=== PATIENT | male | born 1960 | race African-American/Black ===

== ENCOUNTER 2016-12-11 04:06 | Inpatient (IN) | payer OTHER ==
[2016-12-11] MEDS ORDERED: METHYLPREDNISOLONE INJ 125 MG/2 ML SDV IV ONE (04:10)
[2016-12-11] MEDS ORDERED: IPRATROPIUM/ALBUTEROL 0.5-2.5 MG/3 ML AMPUL NEB ONE ×2 (04:10→04:14)
[2016-12-11] MEDS ORDERED: METHYLPREDNISOLONE INJ 125 MG/2 ML SDV ONE (04:14)
[2016-12-11] MEDS ORDERED: LORAZEPAM INJ 2 MG/1 ML VIAL IV ONE ×2 (04:18→06:05)
[2016-12-11] MEDS ORDERED: ALBUTEROL SULFATE 0.083% NEB 2.5 MG/3 ML AMPUL NEB SCH (04:25)
[2016-12-11 04:33] LABS: ABSOLUTE BASOPHILS # (AUTO) 0.1 10^3/uL (0.0-0.2); ABSOLUTE LYMPHOCYTES (AUTO) 1.4 10^3/uL (0.5-4.7); ABSOLUTE MONOCYTES (AUTO) 1.2 10^3/uL (0.1-1.4); ABSOLUTE NEUT (AUTO) 12.4 10^3/uL (1.7-8.2); BASOPHILS % (AUTO) 0.4 % (0-2); HEMATOCRIT 51.2 % (37.9-51.0); HEMOGLOBIN 16.9 g/dL (13.5-17.0); HGB HCT DIFFERENCE -0.5; LYMPHOCYTES % (AUTO) 9.1 % (13-45); MEAN CORPUSCULAR HEMOGLOBIN 31.4 pg (27.0-33.4); MEAN CORPUSCULAR VOLUME 95 fl (80-97); MONOCYTES % (AUTO) 7.8 % (3-13); RED BLOOD COUNT 5.38 10^6/uL (4.35-5.55); RED CELL DISTRIBUTION WIDTH 15.7 % (11.5-14.0); SEGMENTED NEUTROPHILS % (AUTO) 82.7 % (42-78)
--- NOTE | 2016-12-11 04:34 | ER Document Report ---
ED General <SHILO JIMENEZ - Last Filed: 12/11/16 07:43> - General TRAVEL OUTSIDE OF THE [place] IN LAST 30 DAYS: No <ALEKSANDR RENEE - Last Filed: 12/11/16 07:46> - General Chief Complaint: Shortness Of Breath Stated Complaint: SHORTNESS OF BREATH Time Seen by Provider: 12/11/16 04:17 Notes: Patient is a 56-year-old male who presents with complaint of shortness of breath. He is able couple shortness of breath. He did not feel short of breath before going to bed. He's never had anything like this before. He says he is a former smoker but smoked a long time ago. He is an alcoholic. Still last drink was yesterday. I did look through his records and see where he's been in for a cholesterol. Patient is tachycardic and tremulous. I asked him if he feels he may been withdrawal again, patient says it's possible. Patient denies history of asthma. No history of COPD. No recent leg pain or leg swelling. No history of DVT or PE in the past. No chest pain. No recent fevers or infections. No other complaints at this time. (ALEKSANDR RENEE) - Related Data Allergies/Adverse Reactions: No Known Allergies Allergy (Verified 12/11/16 05:01) Past Medical History - Social History Smoking Status: Former Smoker Frequency of alcohol use: Heavy Drug Abuse: None Family History: Reviewed & Not Pertinent, Hypertension, Other - Mom age 74 Alzheimer's Patient has suicidal ideation: No Patient has homicidal ideation: No - Past Medical History Cardiac Medical History: Reports: Hx Hypertension Denies: Hx Congestive Heart Failure - Cardiomyopathy, Hx Coronary Artery Disease, Hx Heart Attack Pulmonary Medical History: Denies: Hx Asthma, Hx Bronchitis, Hx COPD, Hx Pneumonia Neurological Medical History: Denies: Hx Cerebrovascular Accident, Hx Seizures Renal/ Medical History: Denies: Hx Peritoneal Dialysis Musculoskeltal Medical History: Reports Hx Arthritis Psychiatric Medical History: Reports: Hx Post Traumatic Stress Disorder Denies: Hx Depression Past Surgical History: Reports: Hx Orthopedic Surgery - neck - Immunizations Hx Diphtheria, Pertussis, Tetanus Vaccination: No <ALEKSANDR RENEE - Last Filed: 12/11/16 07:46> Review of Systems <SHILO JIMENEZ - Last Filed: 12/11/16 07:43> <ALEKSANDR RENEE - Last Filed: 12/11/16 07:46> - Review of Systems Notes: My Normal Review Basic REVIEW OF SYSTEMS: CONSTITUTIONAL : Denies fever, chills, or sweats. Denies recent illness. EENT: Denies eye, ear, throat, or mouth pain or symptoms. Denies nasal or sinus congestion. CARDIOVASCULAR: Denies chest pain. RESPIRATORY: Difficulty breathing. GASTROINTESTINAL: Denies abdominal pain. Denies nausea, vomiting, or diarrhea. Denies constipation. Last BM: MP: MUSCULOSKELETAL: Denies neck or back pain or joint pain or swelling. SKIN: Denies rash or skin lesions. NEUROLOGICAL: Denies altered mental status or loss of consciousness. Denies headache. Denies weakness or paralysis or loss of use of either side. Denies problems with gait or speech. Denies sensory or motor loss. ALL OTHER SYSTEMS REVIEWED AND NEGATIVE. (ALEKSANDR RENEE) Physical Exam <SHILO JIMENEZ - Last Filed: 12/11/16 07:43> <ALEKSANDR RENEE - Last Filed: 12/11/16 07:46> - Vital signs Vitals: Pulse Resp BP Pulse Ox 130 H 32 H 123/91 H 87 L 12/11/16 04:07 12/11/16 04:07 12/11/16 04:07 12/11/16 04:07 - Notes Notes: General Appearance: Well nourished, alert, cooperative, moderate acute distress , no obvious discomfort. Anxious appearing. Vitals: reviewed, See vital signs table. Head: no swelling or tenderness to the head Eyes: PERRL, EOMI, Conjuctiva clear Mouth: No decreasd moisture Throat: No tonsillar inflammation, No airway obstruction, No lymphadenopathy Neck: Supple, no neck tenderness, No thyromegaly Lungs: No wheezing, No rales, No rhonci, mild to moderate accessory muscle use, fair air exchange bilaterally. Some tachypnea Heart: Tachycardia rate, Regular rythm, No murmur, no rub Abdomen: Normal BS, soft, No rigidity, No abdominal tenderness, No guarding, no rebound, no abdominal masses, no organomegaly Extremities: strength 5/5 in all extremities, good pulses in all extremities, no swelling or tenderness in the extremities, no edema. Skin: warm, dry, appropriate color, no rash Neuro: speech clear, oriented x 3, normal affect, responds appropriately to questions. Some tremor on exam. Cranial nerves II through XII are intact. No focal neurologic deficits. (ALEKSANDR RENEE) Course - Laboratory Result Diagrams: 12/11/16 04:18 12/11/16 05:08 <SHILO JIMENEZ - Last Filed: 12/11/16 07:43> - Laboratory Result Diagrams: 12/11/16 04:18 12/11/16 05:08 <ALEKSANDR RENEE - Last Filed: 12/11/16 07:46> - Re-evaluation Re-evalutation: 12/11/16 04:33 I do not hear much wheezing on exam. Patient appears have some good air exchange. He is a poor smoker. We will give him a trial available as treatment. I will also start him off of Ativan as he is alcoholic and does have a history of withdrawal and it has been over 12 hours since his last drink. We will obtain slept to evaluate patient. Will obtain chest x-ray. If everything continues be negative and the patient continues have difficulty breathing we may consider workup for PE. 12/11/16 04:54 Patient is looking and feeling much more relaxed. He says he does not feel like his wheezing anymore. I initially did not really hear any wheezing the patient himself said he had been hearing wheezing tonight before coming in. I' m not sure if it's the breathing treatment that is helping him or the Ativan. I do feel like he is having better air exchange now however. I do seem to hear more air movement that I did before the breathing treatment. We will continue to monitor him to make sure he continues to improve. 12/11/16 04:55 12/11/16 06:06 The patient's T7 days feeling better; however, today he seems to be certain have increased work of breathing as compared to when I last evaluated him. I will give him another epidural treatment consisting help some in the past. I will give him another dose of Ativan. His labs show is very acidotic. His hypokalemic. I suspect there is accommodation of both arrestor issue as well as alcohol withdrawal. I will obtain a VQ scan to rule out PE. 12/11/16 06:47 Patient suddenly started to do much worse. He's now only speaking in 1-2 word sentences. I therefore elected to intubate him as he was started to look very tired and was having a lot of difficulty breathing. Patient did agree to intubation. Patient was intubated on first attempt. His lung sounds continue to remain clear. I've ordered a VQ scan to rule out PE. 12/11/16 07:20 Received phone call that the NG tube may be in the left main bronchus. I had the nurses pulled NG tube. I stayed at bedside and helped reposition the NG tube. Now with NG tube repositioned we have stomach contents coming back with suctioning. Tube appears to be in appropriate position at this time. (ALEKSANDR RENEE) - Vital Signs Vital signs: Temp Pulse Resp BP Pulse Ox 97.8 F 130 H 29 H 126/94 H 96 12/11/16 04:20 12/11/16 04:07 12/11/16 07:15 12/11/16 07:15 12/11/16 07:15 - Laboratory Laboratory results interpreted by me: 12/11/16 12/11/16 12/11/16 04:18 04:18 04:18 WBC 15.0 H Hct 51.2 H RDW 15.7 H Seg Neutrophils % 82.7 H Lymphocytes % 9.1 L Absolute Neutrophils 12.4 H VBG pH 7.10 L* VBG pCO2 33.8 L VBG HCO3 10.2 L Potassium Chloride Carbon Dioxide Anion Gap Creatinine Est GFR ( Amer) Est GFR (Non-Af Amer) Glucose Magnesium Total Bilirubin Direct Bilirubin AST Creatine Kinase CK-MB (CK-2) 17.50 H Total Protein Albumin 12/11/16 12/11/16 05:08 05:08 WBC Hct RDW Seg Neutrophils % Lymphocytes % Absolute Neutrophils VBG pH VBG pCO2 VBG HCO3 Potassium 3.0 L* Chloride 93 L Carbon Dioxide 8 L* Anion Gap 39 H Creatinine 1.82 H Est GFR ( Amer) 47 L Est GFR (Non-Af Amer) 39 L Glucose 139 H Magnesium 1.4 L Total Bilirubin 2.2 H Direct Bilirubin 1.1 H AST 85 H Creatine Kinase 804 H CK-MB (CK-2) Total Protein 8.9 H Albumin 5.1 H - EKG Interpretation by Me Additional EKG results interpreted by me: 12/11/16 04:30 EKG is reviewed and interpreted by me. EKG shows sinus tachycardia with a rate of 133 beats per minute. No ST segment elevation or depression. No ischemic T wave inversions. AL level, QRS duration, QTC levels are within normal range. ( ALEKSANDR RENEE) Procedures - Intubation Orotracheal Airway evaluation: Normal anatomy Mallampati Classification: Class 1 Medications: Etomidate, Succinylcholine Intubation method: Orotracheal Blade type: Kathe Blade size: 4 ETT size: 7.5 ETT secured at: Gums ETT secured at (cm): 25 Breath Sounds after Intubation: Equal End tidal CO2 confirmed: Yes Intubation Complications: No complications <ALEKSANDR RENEE - Last Filed: 12/11/16 07:46> Critical Care Note <SHILO JIMENEZ - Last Filed: 12/11/16 07:43> - Critical Care Note Total time excluding time spent on procedures (mins): 65 <ALEKSANDR RENEE - Last Filed: 12/11/16 07:46> - Critical Care Note Comments: Critical care time spent on this patient not including time spent on procedures is approximately 65 minutes. This is due to management of respiratory distress, hypokalemia, frequent reevaluations, and vent management.. (ALEKSANDR RENEE) Discharge - Discharge Admitting Provider: Hospitalist Unit Admitted: ICU <SHILO JIMENEZ - Last Filed: 12/11/16 07:43> <ALEKSANDR RENEE - Last Filed: 12/11/16 07:46> - Discharge Clinical Impression: Tachycardia Alcohol dependency Qualifiers: Substance use status: unspecified alcohol-induced disorder Qualified Code(s): F10.29 - Alcohol dependence with unspecified alcohol-induced disorder Respiratory failure Qualifiers: Chronicity: acute Respiratory failure complication: hypoxia Qualified Code(s): J96.01 - Acute respiratory failure with hypoxia Referrals: DEVEN ALCALA DO [Primary Care Provider] - Follow up as needed
[2016-12-11 04:35] LABS: VENOUS BLOOD BASE EXCESS -18.4 mmol/L; VENOUS BLOOD HCO3 10.2 mmol/L (20-32); VENOUS BLOOD PCO2 33.8 mmHg (35-63)
[2016-12-11 04:36] LABS: VENOUS BLOOD PH 7.1 (7.30-7.42)
[2016-12-11 05:01] LABS: CREATINE KINASE MB 17.5 ng/mL (<4.55)
[2016-12-11 05:05] LABS: TROPONIN I 0.036 ng/mL
[2016-12-11] MEDS: MAGNESIUM SULFATE/D5W 100 ML IV SCH ×2 (05:14→06:14)
[2016-12-11 05:30] LABS: ALANINE AMINOTRANSFERASE 68 U/L (21-72); ALBUMIN 5.1 g/dL (3.5-5.0); ALKALINE PHOSPHATASE 84 U/L (38-126); ASPARTATE AMINO TRANSFERASE 85 U/L (17-59); BILIRUBIN,DIRECT 1.1 mg/dL (0.0-0.4); BILIRUBIN,TOTAL 2.2 mg/dL (0.2-1.3); BLOOD UREA NITROGEN 20 mg/dL (7-20); CALCIUM 9.5 mg/dL (8.4-10.2); CHLORIDE 93 mmol/L (98-107); CREATINE KINASE 804 U/L (55-170); CREATININE RESULT 1.82 mg/dL (0.52-1.25); GLUCOSE 139 mg/dL (75-110); TOTAL PROTEIN 8.9 g/dL (6.3-8.2)
[2016-12-11 05:32] LABS: ALCOHOL < 10 mg/dL (NONE DETECTED)
[2016-12-11 05:57] LABS: SODIUM 140.3 mmol/L (137-145)
[2016-12-11 05:59] LABS: ANION GAP 39 (5-19)
[2016-12-11 06:01] LABS: CARBON DIOXIDE 8 mmol/L (22-30)
[2016-12-11] MEDS ORDERED: NORMAL SALINE 1000 ML 1,000 ML IV ONE (06:02)
[2016-12-11] MEDS ORDERED: POTASSIUM CHLORIDE 10 MEQ TABLET.SA PO ONE (06:02)
[2016-12-11] MEDS ORDERED: ALBUTEROL SULFATE 0.083% NEB 2.5 MG/3 ML AMPUL NEB ONE (06:05)
[2016-12-11] MEDS ORDERED: ETOMIDATE INJ/PF 20 MG/10 ML SDV IV ONE ×2 (06:34→06:46)
[2016-12-11] MEDS ORDERED: MIDAZOLAM 2 MG/2 ML INJ ONE (06:45)
[2016-12-11] MEDS ORDERED: SUCCINYLCHOLINE CHLORIDE INJ 200 MG/10 ML VIAL IV ONE (06:46)
[2016-12-11] MEDS ORDERED: MIDAZOLAM HCL 100 ML IV PRN ×2 (06:46→07:45)
[2016-12-11] MEDS ORDERED: MIDAZOLAM 2 MG/2 ML INJ IV ONE (06:46)
[2016-12-11] MEDS ORDERED: SUCCINYLCHOLINE CHLORIDE INJ 200 MG/10 ML VIAL ONE (06:50)
[2016-12-11] MEDS ORDERED: MIDAZOLAM HCL 100 ML IV ONE (06:51)
[2016-12-11] MEDS ORDERED: PROPOFOL INJ 200 MG/20 ML VIAL IV ONE (06:58)
[2016-12-11] MEDS ORDERED: PROPOFOL 100 ML IV PRN (06:58)
[2016-12-11] MEDS ORDERED: PROPOFOL 100 ML IV ONE (07:00)
[2016-12-11] MEDS ORDERED: POTASSI CL 20 MEQ/50 ML RIDER 50 ML IV SCH (07:30)
[2016-12-11] MEDS ORDERED: SODIUM BICARBONATE 8.4% INJ 50 MEQ/50 ML DISP.SYRIN IV ONE ×3 (07:42→11:30)
[2016-12-11] MEDS ORDERED: PHARMACY COMMUNICATION ORDER MC NR (07:45)
[2016-12-11] MEDS ORDERED: ACETAMINOPHEN 325 MG TABLET NG PRN (07:47)
[2016-12-11] MEDS ORDERED: ONDANSETRON HCL INJ/PF 4 MG/2 ML SDV IV PRN (07:47)
[2016-12-11] MEDS ORDERED: LEVALBUTEROL HCL NEB 1.25 MG/3 ML AMPUL NEB PRN (07:47)
[2016-12-11] MEDS ORDERED: DEXTROSE 40% GEL 15 GM TUBE PO PRN ×2 (07:52)
[2016-12-11] MEDS ORDERED: DEXTROSE 50%-WATER 25 GM/50 ML DISP.SYRIN IV PRN ×2 (07:52)
[2016-12-11] MEDS ORDERED: GLUCAGON,HUMAN RECOMB 1 MG INJ IM PRN (07:52)
[2016-12-11] MEDS ORDERED: INSULIN LISPRO 100 UNIT/ML 3 ML VIAL SUBCUT PRN (07:52)
[2016-12-11] MEDS ORDERED: LORAZEPAM INJ 2 MG/1 ML VIAL IV PRN (07:54)
[2016-12-11] MEDS ORDERED: FENTANYL CITRATE INJ/PF 100 MCG/2 ML AMPUL IV PRN (07:54)
[2016-12-11] MEDS ORDERED: IPRATROPIUM/ALBUTEROL 0.5-2.5 MG/3 ML AMPUL NEB SCH (08:00)
[2016-12-11] MEDS ORDERED: POTASSIUM CHLORIDE 20 MEQ/15 ML UDCUP NG ONE (08:30)
[2016-12-11] MEDS: NORMAL SALINE 1000 ML 1,000 ML IV PRN ×2 (08:31→08:53)
[2016-12-11] MEDS ORDERED: HEPARIN SOD (PORCINE) 1,000 UNIT/ML 10 ML VIAL IV PRN (08:38)
[2016-12-11] MEDS ORDERED: HEPARIN SOD (PORCINE) 1,000 UNIT/ML 10 ML VIAL IV ONE (08:38)
[2016-12-11] MEDS ORDERED: HEPARIN SODIUM,PORCINE/D5W 250 ML IV PRN (08:38)
[2016-12-11] MEDS ORDERED: NORMAL SALINE 1000 ML 3,000 ML IV ONE (08:48)
[2016-12-11] MEDS: PROPOFOL 100 ML IV PRN ×2 (09:02→11:55)
[2016-12-11 09:17] LABS: THYROID STIMULATING HORMONE 2.05 uIU/mL (0.47-4.68)
[2016-12-11 09:40] LABS: CREATINE KINASE 766 U/L (55-170)
[2016-12-11 09:42] LABS: APPEARANCE,URINE CLEAR; BILIRUBIN,URINE NEGATIVE (NEGATIVE); GLUCOSE, URINE NEGATIVE (NEGATIVE); KETONES,URINE 80 mg/dL (NEGATIVE); LEUKOCYTE ESTERASE,URINE NEGATIVE (NEGATIVE); NITRITE,URINE NEGATIVE (NEGATIVE); PROTEIN,URINE 30 mg/dL (NEGATIVE); URINE SPECIFIC GRAVITY 1.011; UROBILINOGEN,URINE NEGATIVE mg/dL (<2.0)
[2016-12-11 09:52] LABS: CREATINE KINASE MB 12.7 ng/mL (<4.55); TROPONIN I 0.032 ng/mL
[2016-12-11] MEDS: POTASSI CL 20 MEQ/50 ML RIDER 20 MEQ/50 ML RTUPB IV SCH ×2 (09:53→11:37)
[2016-12-11 09:56] LABS: ARTERIAL BLOOD BASE EXCESS -15.1 mmol/L; ARTERIAL BLOOD O2 SATURATION 99.5 % (94-98)
[2016-12-11 09:58] LABS: D-DIMER 5.33 ug/mL (0.00-0.50); PARTIAL THROMBOPLASTIN TIME 25.9 SEC (23.5-35.8); PROTHROMBIN TIME 13.2 SEC (11.4-15.4)
[2016-12-11 09:59] LABS: LIPASE 9881.1 U/L (23-300)
[2016-12-11] MEDS: MAGNESIUM SULFATE/D5W 1 GM/100 ML RTUPB IV SCH ×2 (09:59→11:41)
[2016-12-11] MEDS ORDERED: THIAMINE HCL 100 MG, FOLIC ACID 1 MG in NORMAL SALINE 50 ML IV SCH (10:00)
[2016-12-11] MEDS ORDERED: PANTOPRAZOLE SODIUM 40 MG VIAL IV SCH (10:00)
[2016-12-11 10:04] LABS: URINE BARBITURATES SCREEN NEGATIVE; URINE METHADONE SCREEN NEGATIVE; URINE OPIATES LOW NEGATIVE
[2016-12-11 10:12] LABS: URINE PHENCYCLIDINE SCREEN NEGATIVE
[2016-12-11] MEDS ORDERED: DEXTROSE 5%-WATER 1000 ML 1,000 ML with SODIUM BICARBONATE 150 ML IV PRN ×2 (10:43)
[2016-12-11] MEDS ORDERED: NORMAL SALINE 1000 ML 1,000 ML IV PRN (10:44)
[2016-12-11] MEDS ORDERED: DEXTROSE 5%-WATER 1000 ML 1,000 ML with SODIUM BICARBONATE 150 MEQ IV PRN ×2 (11:02)
[2016-12-11] MEDS ORDERED: ASPIRIN 300 MG SUPP, RECTAL PR ONE (11:04)
[2016-12-11] MEDS ORDERED: ASPIRIN 325 MG TABLET ONE (11:07)
[2016-12-11] MEDS ORDERED: ENALAPRILAT DIHYDRATE INJ/PF 1.25 MG/1 ML SDV IV ONE (11:11)
--- NOTE | 2016-12-11 11:27 | PDOC H&P ---
History of Present Illness Admission Date/PCP: 12/11/16 07:47 DEVEN ALCALA DO History of Present Illness: BILLIE RM is a 56 year old male who is currently intubated in the emergency department. History is unobtainable secondary to this and all history is obtained via the ER documentation, review of records, and discussion with the ER physician, . Patient barely presented with complaints of shortness of breath was found be saturating 87% on room air. Patient received SoluMedrol, DuoNeb, and Ativan and subsequently began having acute respiratory distress and was intubated. Any remaining history is obtained from the record. Patient is currently intubated and sedated. 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 Musculoskeltal Medical History: Reports: Arthritis Psychiatric Medical History: Reports: Alcohol Dependency, Post Traumatic Stress Disorder Denies: Depression Hematology: Denies: Anemia Past Surgical History Past Surgical History: Reports: Orthopedic Surgery - neck Social History Smoking Status: Former Smoker Frequency of Alcohol Use: Heavy Amount of Alcoholic Beverages Per Day: last reported is a fifth of gin a day Hx Recreational Drug Use: No Drugs: None Hx Prescription Drug Abuse: No - Advance Directive Resuscitation Status: Full Code Surrogate healthcare decision maker:: Unable to obtain Family History Family History: Reviewed & Not Pertinent, Hypertension, Other - Mom age 74 Alzheimer's Parental Family History Reviewed: No - unable to obtain Children Family History Reviewed: No Sibling(s) Family History Reviewed.: No Medication/Allergy Home Medications: Unobtainable [Unobtainable] 12/11/16 Allergies/Adverse Reactions: No Known Allergies Allergy (Verified 12/11/16 05:01) Review of Systems ROS unobtainable: Due to endotracheal tube Physical Exam Vital Signs: Temp Pulse Resp BP Pulse Ox 97.8 F 130 H 18 150/106 H 100 12/11/16 04:20 12/11/16 04:07 12/11/16 09:37 12/11/16 09:37 12/11/16 09:37 General appearance: PRESENT: well-developed, well-nourished, other - Intubated and sedated Head exam: PRESENT: atraumatic, normocephalic Eye exam: PRESENT: conjunctiva pink, scleral icterus. ABSENT: conjunctival injection, periorbital swelling, PERRLA - Pupils are minimally reactive miotic. Ear exam: PRESENT: normal external ear exam Mouth exam: PRESENT: dry mucosa, tongue midline Neck exam: ABSENT: carotid bruit, JVD, lymphadenopathy, thyromegaly, tracheal deviation Respiratory exam: PRESENT: clear to auscultation sidney. ABSENT: rales, rhonchi, wheezes Cardiovascular exam: PRESENT: RRR, +S1, +S2, systolic murmur, tachycardia. ABSENT: clicks, diastolic murmur, gallop, rubs Pulses: PRESENT: normal dorsalis pedis pul Vascular exam: PRESENT: normal capillary refill GI/Abdominal exam: PRESENT: distended, normal bowel sounds, soft. ABSENT: firm , guarding, mass, Woodall's sign, organolmegaly, rebound, rigid, tenderness Rectal exam: PRESENT: deferred Extremities exam: PRESENT: full ROM. ABSENT: calf tenderness, clubbing, pedal edema Neurological exam: PRESENT: other - Intubated and sedated Psychiatric exam: PRESENT: other - Intermittent and sedated Skin exam: PRESENT: dry, intact, rash - Patient has maculo papular rash on dorsum of his right foot, warm. ABSENT: cyanosis Results Laboratory Results: 12/11/16 12/11/16 12/11/16 08:45 08:45 08:54 Carbonic Acid HCO3/H2CO3 Ratio ABG pH ABG pCO2 ABG pO2 ABG HCO3 ABG O2 Saturation ABG Base Excess FiO2 Ammonia 52.1 H Lipase 9881.1 H Urine Color YELLOW Urine Appearance CLEAR Urine pH 5.0 Ur Specific [place] 1.011 Urine Protein 30 H Urine Glucose (UA) NEGATIVE Urine Ketones 80 H Urine Blood LARGE H Urine Nitrite NEGATIVE Ur Leukocyte Esterase NEGATIVE Urine WBC (Auto) 0 Urine RBC (Auto) 1 12/11/16 09:45 Carbonic Acid 0.79 L HCO3/H2CO3 Ratio 13:1 ABG pH 7.22 L ABG pCO2 26.4 L ABG pO2 270.5 H ABG HCO3 10.7 L ABG O2 Saturation 99.5 H ABG Base Excess -15.1 FiO2 100% Ammonia Lipase Urine Color Urine Appearance Urine pH Ur Specific [place] Urine Protein Urine Glucose (UA) Urine Ketones Urine Blood Urine Nitrite Ur Leukocyte Esterase Urine WBC (Auto) Urine RBC (Auto) 12/11/16 12/11/16 08:45 08:45 Creatine Kinase 766 H CK-MB (CK-2) 12.70 H Troponin I 0.032 Impressions: KUB X-Ray 12/11/16 07:44 IMPRESSION: Nasogastric tube extends below the diaphragm. Bowel distention noted. Chest X-Ray 12/11/16 09:47 IMPRESSION: Endotracheal tube tip midtrachea. Nasogastric tube tip in the distal esophagus. Minimal retrocardiac atelectasis Status: Imported from PACS Assessment & Plan - Diagnosis (1) STEMI (ST elevation myocardial infarction) Qualifiers: Involved coronary artery: right coronary artery Qualified Code(s): I21.11 - ST elevation (STEMI) myocardial infarction involving right coronary artery Is this a current diagnosis for this admission?: YesPlan: Patient has been given aspirin, Lipitor, and metoprolol. Discussion with cardiology, Dr. CHAVEZ reveals patient has a high risk for bleeding secondary to his alcoholism and no unable to obtain history. At this time does not recommend lytic therapy. Patient also transfer to tertiary center for STEMI. (2) Respiratory failure Qualifiers: Chronicity: acute Respiratory failure complication: hypoxia Qualified Code(s): J96.01 - Acute respiratory failure with hypoxia Is this a current diagnosis for this admission?: YesPlan: Likely secondary to underlying STEMI. Patient now intubated. (3) Hypomagnesemia Is this a current diagnosis for this admission?: YesPlan: Have given 3 g IV. (4) Alcohol dependency Qualifiers: Substance use status: unspecified alcohol-induced disorder Qualified Code(s): F10.29 - Alcohol dependence with unspecified alcohol-induced disorder Is this a current diagnosis for this admission?: YesPlan: Give IV thiamine folic acid replete magnesium and potassium. Patient on Versed drip and propofol (5) Hypertension Qualifiers: Hypertension type: essential hypertension Qualified Code(s): I10 - Essential (primary) hypertension Is this a current diagnosis for this admission?: YesPlan: Place patient on IV metoprolol. Patient currently preload dependent will avoid nitroglycerin. (6) High anion gap metabolic acidosis Is this a current diagnosis for this admission?: YesPlan: Have given patient 2 boluses of sodium bicarbonate will begin a bicarbonate drip at 100 mL per hour. This is likely secondary to underlying alcohol like starvation ketosis, and lactic acidosis. Patient had prior been compensated and a respiratory fashion and underwent subsequent respiratory failure. (7) Elevated lipase Is this a current diagnosis for this admission?: YesPlan: Concern for underlying pancreatitis. Will hold CT abdomen and pelvis pending transfer. Concern for gallstones as patient does have a mildly elevated bilirubin. (8) Hyperammonemia Is this a current diagnosis for this admission?: YesPlan: Likely secondary to underlying liver disease. - Time Critical Time spent with patient: 35 or more minutes - Active critical care time spent with this patient was 90 minutes Medications reviewed and adjusted accordingly: Yes Anticipated discharge: [facility]: when bed available - Inpatient Certification Based on my medical assessment, after consideration of the patient's comorbidities, presenting symptoms, or acuity I expect that the services needed warrant INPATIENT care.: Yes I certify that my determination is in accordance with my understanding of Medicare's requirements for reasonable and necessary INPATIENT services [42 CFR 412.3e].: Yes Medical Necessity: Need For Continuous Telemetry Monitoring Post Hospital Care: D/C or Transfer Summary
--- NOTE | 2016-12-11 11:33 | PDOC TRANSFER SUMMARY ---
General Admission Date/PCP: 12/11/16 07:47 DEVEN ALCALA, Transfer Date: 12/11/16 Accepting Facility: [facility] Resuscitation Status: Full Code - Transfer Diagnosis (1) STEMI (ST elevation myocardial infarction) Is this a current diagnosis for this admission?: Yes (2) Respiratory failure Is this a current diagnosis for this admission?: Yes (3) Hypomagnesemia Is this a current diagnosis for this admission?: Yes (4) Alcohol dependency Is this a current diagnosis for this admission?: Yes (5) Hypertension Is this a current diagnosis for this admission?: Yes (6) High anion gap metabolic acidosis Is this a current diagnosis for this admission?: Yes (7) Elevated lipase Is this a current diagnosis for this admission?: Yes (8) Hyperammonemia Is this a current diagnosis for this admission?: Yes - Transfer Medications Home Medications: Unobtainable [Unobtainable] 12/11/16 Transfer Medications: Current Medications Acetaminophen (Tylenol 325 Mg Tablet) 325 mg NG Q4HP PRN PRN Reason: FOR PAIN OR TEMP Stop: 01/10/17 07:46 Acetylcysteine (Mucomist 20% Soln 800 Mg/4 Ml) 600 mg NEB RTBID GONZALEZ Stop: 01/10/17 19:59 Albuterol/Ipratropium (Duoneb 3 Ml Ampul) 3 ml NEB RTQ6 GONZALEZ Stop: 01/10/17 07:59 Last Admin: 12/11/16 09:50 Dose: 3 ml Atorvastatin Calcium (Lipitor 80 Mg Tablet) 80 mg NG QHS GONZALEZ Stop: 01/10/17 21:59 Dextrose (Dextrose Inj 50% Syringe (25 Gm/50 Ml)) 12.5 gm IV PRN PRN; Protocol PRN Reason: FOR BG 50-69 IN ALERT PATIENT Stop: 01/10/17 07:51 Dextrose (Dextrose Inj 50% Syringe (25 Gm/50 Ml)) 25 gm IV PRN PRN PRN Reason: Protocol Stop: 01/10/17 07:51 Fentanyl Citrate (Sublimaze Inj/Pf 100 Mcg/2 Ml Ampule) 50 mcg IV Q4HP PRN PRN Reason: PAIN Stop: 12/18/16 07:53 Glucagon (Glucagen Inj 1 Mg Vial) 1 mg IM PRN PRN; Protocol PRN Reason: Evaluate for BG < 70 Stop: 01/10/17 07:51 Glucose (Glutose 40% Gel 15 Gm Tube) 30 gm PO PRN PRN; Protocol PRN Reason: FOR BG < 50 IN ALERT PATIENT Stop: 01/10/17 07:51 Glucose (Glutose 40% Gel 15 Gm Tube) 15 gm PO PRN PRN; Protocol PRN Reason: FOR BG 50-69 IN ALERT PATIENT Stop: 01/10/17 07:51 Heparin Sodium (Porcine) (Heparin Inj 5,000 Units/Ml 1 Ml Syringe) 5,000 unit SUBCUT Q8 GONZALEZ Stop: 01/10/17 13:59 Heparin Sodium (Porcine) (Heparin Inj 1,000 Unit/Ml 10 Ml Vial) 0 - 15,000 unit IV .BOLUS PER PROTOCOL PRN; Protocol PRN Reason: RESPOND TO aPTT VALUE Stop: 01/10/17 08:37 Magnesium Sulfate/Dextrose (Magnesium Sulfate Rtu-D5w 1 Gm/100 Ml Premix) 1 gm in 100 mls @ 100 mls/hr IV Q1H [facility] Stop: 12/11/16 12:59 Last Admin: 12/11/16 09:59 Dose: 100 ml Potassium Chloride/Water (Potassium Chloride [place] 20 Meq/50 Ml) 20 meq in 50 mls @ 25 mls/hr IV Q2H [facility] Stop: 12/11/16 14:29 Last Admin: 12/11/16 09:53 Dose: 50 ml Midazolam HCl (Versed Rtu 50 Mg/100 Ml Premix Bag) 100 mls @ 0 mls/hr IV CONTINUOUS PRN; Protocol; Titrate PRN Reason: THIS MED IS NOT "PRN" Stop: 12/18/16 07:44 Propofol (Diprivan Rtu 1000 Mg/100 Ml Inf.Bottle) 100 mls @ 0 mls/hr IV CONTINUOUS PRN; Protocol; Titrate PRN Reason: THIS MED IS NOT "PRN" Stop: 01/10/17 07:44 Last Admin: 12/11/16 09:02 Dose: 100 ml Thiamine HCl 100 mg/ Folic (Acid 1 mg/ Sodium Chloride) 51.2 mls @ 100 mls/hr IV DAILY [facility] Stop: 01/10/17 09:59 Last Admin: 12/11/16 09:59 Dose: 100 mg Heparin Sodium/Dextrose (Heparin Rtu 25,000 Unit/250 Ml D5w Premix) 250 mls @ 0 mls/hr IV CONTINUOUS PRN; Protocol; Titrate PRN Reason: THIS MED IS NOT "PRN" Stop: 01/10/17 08:37 Last Admin: 12/11/16 11:17 Dose: 250 ml Sodium Chloride (Nacl 0.9% 1000 Ml Iv Soln) 3,000 mls @ 200 mls/hr IV BOLUS ONE Stop: 12/11/16 23:47 Sodium Chloride (Nacl 0.9% 1000 Ml Iv Soln) 1,000 mls @ 100 mls/hr IV CONTINUOUS PRN PRN Reason: THIS MED IS NOT "PRN" Stop: 01/10/17 07:46 Sodium Bicarbonate 150 meq/ (Dextrose) 1,000 mls @ 100 mls/hr IV CONTINUOUS PRN PRN Reason: THIS MED IS NOT "PRN" Stop: 01/10/17 11:01 Insulin Human Lispro (Humalog Insulin 100 Unit/1 Ml 3 Ml Vial) 0 - 12 unit SUBCUT Q6HP PRN PRN Reason: Protocol Stop: 01/10/17 07:51 Levalbuterol HCl (Xopenex Neb 1.25 Mg/3 Ml Ampul) 1.25 mg NEB RTQ2HP PRN PRN Reason: SHORTNESS OF BREATH Stop: 01/10/17 07:46 Lorazepam (Ativan Inj 2 Mg/1 Ml Vial) 2 mg IV Q2HP PRN PRN Reason: AGITATION Stop: 12/18/16 07:53 Methylprednisolone Sodium Succinate (Solu-Medrol Inj/Pf 125 Mg/2 Ml Sdv) 125 mg IV Q8 GONZALEZ Stop: 01/10/17 13:59 Metoprolol Tartrate (Lopressor Inj/Pf 5 Mg/5 Ml Sdv) 2.5 mg IV Q6 GONZALEZ Stop: 01/10/17 11:59 Ondansetron HCl (Zofran Inj/Pf 4 Mg/2 Ml Sdv) 4 mg IV Q6HP PRN PRN Reason: FOR NAUSEA/VOMITING Stop: 01/10/17 07:46 Pantoprazole Sodium (Protonix Iv Inj 40 Mg Vial) 40 mg IV Q12 GONZALEZ Stop: 12/14/16 09:59 Pharmacy Profile Note (Medication Communication Order) 1 each .NOTICE NR Stop: 01/10/17 07:44 Sodium Bicarbonate (Sodium Bicarbonate 8.4% Inj 50 Meq/50ml Syrin) 50 meq IV NOW ONE Stop: 12/11/16 11:31 Last Admin: 12/11/16 11:07 Dose: 50 meq Sodium Chloride (Saline Flush 2.5 Ml Monoject Prefil Syrin) 2.5 ml IV Q8 GONZALEZ Stop: 01/10/17 13:59 - Allergies Allergies/Adverse Reactions: No Known Allergies Allergy (Verified 12/11/16 05:01) Hospital Course Hospital Course: Patient is a 56-year-old [place] male who was seen this morning at the request of the emergency department. History is unobtainable secondary to this and all history is obtained via the ER documentation, review of records, and discussion with the ER physician, . Patient presented with complaints of shortness of breath was found be saturating 87% on room air. Patient received SoluMedrol, DuoNeb, and Ativan and subsequently began having acute respiratory distress and was intubated. Any remaining history is obtained from the record. Patient was then transferred to the ICU. Evaluation was continued here and repeat EKG revealed a inferior STEMI with reciprocal depressions. Patient was given aspirin, started on heparin, given Lipitor and immediate transfer was established for this patient. Cardiology, Dr. CHAVEZ, evaluated this patient has at this time recommends against lytic therapy due to patient's risk for bleeding due to his underlying alcoholism and inability to obtain a history. Patient was hospitalized in this facility in May 2016 for delirium tremens and possible seizure and during that evaluation patient was found to have a history of cardiomyopathy with an grossly normal EF in 2014 and mild diastolic dysfunction. Patient at that time had been restarted on his medications and discharged in stable condition. Currently it is unknown if take patient takes any medications, but per review of his previous stay patient is to be on Coreg. Physical Exam Vital Signs: Temp Pulse Resp BP Pulse Ox 97.8 F 130 H 18 150/106 H 100 12/11/16 04:20 12/11/16 04:07 12/11/16 09:37 12/11/16 09:37 12/11/16 09:37 Exam: General: Intubated and sedated HEENT: AT/NC, PERRL, EOMI, oropharynx is moist, pink, mild scleral icterus, no conjunctival injection Neck: + JVD, trachea midline Chest: Clear to auscultation bilaterally, no wheezes rhonchi or rales CV: Tachycardic, Regular rate and rhythm, normal S1 and S2, no rub or gallop; + sm llsb Abdomen: Soft, distended, active bowel sounds; no rigidity Extremities: No cyanosis, clubbing or edema Results Laboratory Results: 12/11/16 12/11/16 12/11/16 08:45 08:45 08:54 Carbonic Acid HCO3/H2CO3 Ratio ABG pH ABG pCO2 ABG pO2 ABG HCO3 ABG O2 Saturation ABG Base Excess FiO2 Ammonia 52.1 H Lipase 9881.1 H Urine Color YELLOW Urine Appearance CLEAR Urine pH 5.0 Ur Specific [place] 1.011 Urine Protein 30 H Urine Glucose (UA) NEGATIVE Urine Ketones 80 H Urine Blood LARGE H Urine Nitrite NEGATIVE Ur Leukocyte Esterase NEGATIVE Urine WBC (Auto) 0 Urine RBC (Auto) 1 12/11/16 09:45 Carbonic Acid 0.79 L HCO3/H2CO3 Ratio 13:1 ABG pH 7.22 L ABG pCO2 26.4 L ABG pO2 270.5 H ABG HCO3 10.7 L ABG O2 Saturation 99.5 H ABG Base Excess -15.1 FiO2 100% Ammonia Lipase Urine Color Urine Appearance Urine pH Ur Specific [place] Urine Protein Urine Glucose (UA) Urine Ketones Urine Blood Urine Nitrite Ur Leukocyte Esterase Urine WBC (Auto) Urine RBC (Auto) 12/11/16 12/11/16 08:45 08:45 Creatine Kinase 766 H CK-MB (CK-2) 12.70 H Troponin I 0.032 EKG Comments: EKG--inferior STEMI, reciprocal depression Impressions: KUB X-Ray 12/11/16 07:44 IMPRESSION: Nasogastric tube extends below the diaphragm. Bowel distention noted. Chest X-Ray 12/11/16 09:47 IMPRESSION: Endotracheal tube tip midtrachea. Nasogastric tube tip in the distal esophagus. Minimal retrocardiac atelectasis Plan Time Spent: Greater than 30 Minutes
[2016-12-11] MEDS ORDERED: METOPROLOL TARTRATE PF/INJ 5 MG/5 ML SDV IV SCH (12:00)
[2016-12-11 12:09] LABS: BLOOD UREA NITROGEN 24 mg/dL (7-20); CALCIUM 8.8 mg/dL (8.4-10.2); CHLORIDE 94 mmol/L (98-107); CREATININE RESULT 1.74 mg/dL (0.52-1.25); GLUCOSE 275 mg/dL (75-110); POTASSIUM 3.4 mmol/L (3.6-5.0)
[2016-12-11 12:11] VITALS: BP 148/93
[2016-12-11 12:24] LABS: CARBON DIOXIDE 12 mmol/L (22-30); SODIUM 137.9 mmol/L (137-145)
[2016-12-11 12:34] LABS: ANION GAP 32 (5-19)
[2016-12-11 12:40] LABS: ARTERIAL BLOOD BASE EXCESS -13.2 mmol/L; ARTERIAL BLOOD O2 SATURATION 95.2 % (94-98)
--- NOTE | 2016-12-11 12:53 | PDOC CONSULTATION ---
Consultation Consult Date: 12/11/16 Attending physician:: DINA LIU Consult reason:: resp failure History of Present Illness Admission Date/PCP: 12/11/16 07:47 DEVEN ALCALA DO History of Present Illness: all information from chart BILLIE RM is a 56 year old male who is currently intubated in the emergency department. History is unobtainable secondary to this and all history is obtained via the ER documentation, review of records, and discussion with the ER physician, . Patient barely presented with complaints of shortness of breath was found be saturating 87% on room air. Patient received SoluMedrol, DuoNeb, and Ativan and subsequently began having acute respiratory distress and was intubated. Any remaining history is obtained from the record. 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 Musculoskeltal Medical History: Reports: Arthritis Psychiatric Medical History: Reports: Alcohol Dependency, Post Traumatic Stress Disorder Denies: Depression Hematology: Denies: Anemia Past Surgical History Past Surgical History: Reports: Orthopedic Surgery - neck Social History Information Source: [facility] Records Smoking Status: Unknown if Ever Smoked Frequency of Alcohol Use: Heavy Hx Recreational Drug Use: No Drugs: None Hx Prescription Drug Abuse: No - Advance Directive Resuscitation Status: Full Code Family History Family History: Reviewed & Not Pertinent, Hypertension, Other - Mom age 74 Alzheimer's Parental Family History Reviewed: No Children Family History Reviewed: No Sibling(s) Family History Reviewed.: No Medication/Allergy Home Medications: Unobtainable [Unobtainable] 12/11/16 Allergies/Adverse Reactions: No Known Allergies Allergy (Verified 12/11/16 05:01) Review of Systems ROS unobtainable: Due to endotracheal tube Physical Exam Vital Signs: Temp Pulse Resp BP Pulse Ox 97.8 F 130 H 18 150/106 H 100 12/11/16 04:20 12/11/16 04:07 12/11/16 09:37 12/11/16 09:37 12/11/16 09:37 General appearance: PRESENT: no acute distress, disheveled, well-developed, well -nourished Head exam: PRESENT: atraumatic, normocephalic Eye exam: PRESENT: conjunctiva pale, EOMI Mouth exam: PRESENT: dry mucosa, neck supple, other - ET tube in place Neck exam: ABSENT: carotid bruit, JVD, lymphadenopathy, thyromegaly Respiratory exam: PRESENT: rhonchi, symmetrical, tachypnea Cardiovascular exam: PRESENT: RRR, +S1, +S2 Pulses: PRESENT: normal radial pulses GI/Abdominal exam: PRESENT: normal bowel sounds, soft. ABSENT: distended, guarding, mass, organolmegaly, rebound, tenderness Rectal exam: PRESENT: deferred Gentrourinary exam: PRESENT: indwelling catheter Musculoskeletal exam: PRESENT: other - eschar over L knee Skin exam: PRESENT: dry, warm Results Laboratory Results: 12/11/16 12/11/16 12/11/16 08:45 08:45 08:54 Carbonic Acid HCO3/H2CO3 Ratio ABG pH ABG pCO2 ABG pO2 ABG HCO3 ABG O2 Saturation ABG Base Excess FiO2 Ammonia 52.1 H Lipase 9881.1 H Urine Color YELLOW Urine Appearance CLEAR Urine pH 5.0 Ur Specific [place] 1.011 Urine Protein 30 H Urine Glucose (UA) NEGATIVE Urine Ketones 80 H Urine Blood LARGE H Urine Nitrite NEGATIVE Ur Leukocyte Esterase NEGATIVE Urine WBC (Auto) 0 Urine RBC (Auto) 1 12/11/16 09:45 Carbonic Acid 0.79 L HCO3/H2CO3 Ratio 13:1 ABG pH 7.22 L ABG pCO2 26.4 L ABG pO2 270.5 H ABG HCO3 10.7 L ABG O2 Saturation 99.5 H ABG Base Excess -15.1 FiO2 100% Ammonia Lipase Urine Color Urine Appearance Urine pH Ur Specific [place] Urine Protein Urine Glucose (UA) Urine Ketones Urine Blood Urine Nitrite Ur Leukocyte Esterase Urine WBC (Auto) Urine RBC (Auto) 12/11/16 12/11/16 08:45 08:45 Creatine Kinase 766 H CK-MB (CK-2) 12.70 H Troponin I 0.032 Impressions: KUB X-Ray 12/11/16 07:44 IMPRESSION: Nasogastric tube extends below the diaphragm. Bowel distention noted. Chest X-Ray 12/11/16 09:47 IMPRESSION: Endotracheal tube tip midtrachea. Nasogastric tube tip in the distal esophagus. Minimal retrocardiac atelectasis Assessment & Plan - Diagnosis (1) High anion gap metabolic acidosis Is this a current diagnosis for this admission?: YesPlan: large diff dx [place] (2) Respiratory failure Qualifiers: Chronicity: acute Respiratory failure complication: hypoxia Qualified Code(s): J96.01 - Acute respiratory failure with hypoxia Is this a current diagnosis for this admission?: Yes (3) STEMI (ST elevation myocardial infarction) Qualifiers: Involved coronary artery: unspecified coronary artery Qualified Code (s): I21.3 - ST elevation (STEMI) myocardial infarction of unspecified site Is this a current diagnosis for this admission?: YesPlan: transferred to [facility] care per pcp - Time Critical Time spent with patient: 25-34 minutes - 120 min
--- NOTE | 2016-12-11 12:55 | PDOC PROGRESS REPORT ---
Bedside Procedure - Central Line Right Internal jugular Time completed: 11:05 Consent obtained: No - immergent Central line pre-insertion: Sterile PPE donned, Betadine prep applied, Chloraprep applied, Sterile drapes applied Central line lumen type: Triple Anesthetic type: 1% Lidocaine Ultrasound guided: Yes Line secured with sutures: Yes Central line post-insertion: Blood return from lumens, Sutured, Sterile dressing applied, Position confirmed w/ CXR Complications: No
[2016-12-11] MEDS ORDERED: HEPARIN SOD (PORCINE) 5,000 UNIT/ML 1 ML SYRINGE SUBCUT SCH (14:00)
[2016-12-11] MEDS ORDERED: METHYLPREDNISOLONE INJ 125 MG/2 ML SDV IV SCH (14:00)
--- NOTE | 2016-12-11 16:59 | EKG REPORT ---
SEVERITY:- ABNORMAL ECG - SINUS TACHYCARDIA VENTRICULAR PREMATURE COMPLEX ST ELEVATION, PROBABLE INFERIOR INJURY BORDERLINE R WAVE PROGRESSION, ANTERIOR LEADS LATERAL LEADS ARE ALSO INVOLVED : Confirmed by: Guerita Horne 11-Dec-2016 16:59:09
[2016-12-11] MEDS ORDERED: ACETYLCYSTEINE 20% SOLN 800 MG/4 ML VIAL.NEB NEB SCH (20:00)
[2016-12-11] MEDS ORDERED: ATORVASTATIN CALCIUM 80 MG TABLET NG SCH (22:00)
--- NOTE | 2016-12-11 22:13 | CONSULTATION REPORT E ---
Consultation Report NAME: BILLIE RM : 1960 AGE: 56Y DATE: 12/11/2016 602 A TO: JABARI JACQUES M.D. FROM: DINA LIU M.D. Requesting Physician CHIEF COMPLAINT: Patient admitted with acute hypoxic respiratory failure, now with EKG showing ST-segment elevation in I and aVL leads and mild ST-segment depression in inferior leads which is very suggestive of an ST-elevation MT. HISTORY OF PRESENT ILLNESS: Note that the patient is intubated and sedated, and there are no relatives around to get a history. History obtained from the patient's chart and also with discussions with Dr. Liu, the hospitalist on the case. The patient is a 56-year-old male who came to the Emergency Room with shortness of breath, and on room air, his O2 saturation was 87%. In spite of Solu-Medrol and Ativan, the patient went into acute respiratory failure and was intubated. His EKG at 8:45 a[address] this morning showed ST-segment elevation in the inferior leads suggestive of acute inferior MT. Also, there was some mild ST-segment depression in I and aVL, but the patient's lipase was also very high in 9000 plus range, and this also could give rise to sometimes ST-segment elevation in inferior leads suggestive of a pseudo ST-elevation MT in the inferior wall. At present, the patient is intubated. Blood pressure is stable. He also has significant metabolic acidosis, see lab results below. PAST MEDICAL HISTORY: As per the chart is positive for history of congestive heart failure, history of cardiomyopathy, history of hypertension. There is no history of coronary artery disease or MT. The patient has a history of COPD. 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 He has a history of alcohol dependency, post-traumatic stress disorder. PAST SURGICAL HISTORY: Orthopedic surgery in the neck. SOCIAL HISTORY: The patient is a former smoker. The patient drinks heavily, last reported a fifth of gin a day. FAMILY HISTORY: Positive for hypertension and mother at age 74 with Alzheimer's. ALLERGIES: No known allergies. ADVANCED DIRECTIVE: The patient is a FULL CODE, but as per the chart, his spouse is his surrogate healthcare decision maker, but this cannot confirmed with the patient. REVIEW OF SYSTEMS: Not obtainable due to the patient being intubated and sedated, and there are no relatives around. MEDICATIONS: 1. Mucomyst 600 mg nebulizer treatment b.i.d. 2. Albuterol sulfate 2.5 mg nebulizer treatment x1. 3. Aspirin 300 mg per rectally x1. 4. Atorvastatin 80 mg at bedtime. 5. He is on hypoglycemic precautions with dextrose 30 mg p.o. p.r.n. that is glucose 40% gel and also glucose 40% gel 15 g p.o. p.r.n. hypoglycemia. 6. He is on dextrose 50% 12.5 g p.r.n. 7. He is on dextrose 25 mg IV p.r.n. 8. He did get 1 dose of Vasotec 0.625 mg IV. 9. He is on fentanyl 50 mcg IV q.4 hours p.r.n. 10. Glucagon 1 mg IM p.r.n. 11. He is on heparin 5000 units subcutaneously q.8 hours. 12. He is on IV midazolam drip 100 mL continuous to keep the patient sedated. 13. The patient received at least 4000 mL of normal saline IV bolus, and the patient's normal saline is at 100 mL per hour. He received sodium bicarbonate x2. 14. He is also on Accu-Chek q.6 hours with sliding scale insulin coverage. 15. He is on ipratropium nebulizer treatment x1. 16. He is on Xopenex 1.25 mg nebulizer treatment q.2 hours. 17. He is on lorazepam 2 mg IV x1. 18. He is also on methylprednisolone 125 mg IV x1 and 125 mg IV q.8 hours. 19. He is on metoprolol 2.5 mg IV q.6 hours. 20. Midazolam 2 mg IV p.r.n. 21. He is on pantoprazole sodium (Protonix) 40 mg IV q.12 hours. 22. He is on potassium chloride 40 mEq p.o. x1 and 40 mEq via NG tube x1. 23. He received 3 amps of sodium bicarbonate 50 mEq IV and also sodium bicarbonate 150 mEq in 1000 mL of dextrose to run at 75 mL per hour. 24. He also received succinylcholine for intubation. PHYSICAL EXAMINATION: GENERAL: On examination at present, the patient is intubated and sedated. He is not fighting the ventilator. The patient is well built but looks chronically ill. VITAL SIGNS: He is afebrile with a temperature of 96.6 degrees Fahrenheit. His pulse is 96 beats per minute, regular sinus rhythm. Blood pressure is 143/98. Respirations 20 per minute. O2 saturations are 98% on FiO2 of 45%. HEENT: Head is atraumatic, normocephalic. Eyes: Pupils are equal, round, regular, reactive to light. ENT not examined due to the patient being intubated and sedated. NECK: Supple. There is no JVD. Carotids are equal; there is no bruit. There is no lymphadenopathy. There is no goiter. Trachea is central. LUNGS: Clear to auscultation and percussion. CARDIOVASCULAR: S1, S2 are heard. There is no S3 gallop. There is no S4 gallop. There is systolic murmur left sternal border and the apex. There is no rub. ABDOMEN: Soft and nontender. There is no hepatosplenomegaly. Bowel sounds are well heard. There are no tender areas or masses. EXTREMITIES: Femorals are slightly diminished. There are no femoral bruits. Leg pulses are diminished. There is no pedal edema. There is no DVT or cellulitis. CENTRAL NERVOUS SYSTEM: The patient is sedated, hence not examined. PSYCHIATRIC: The patient is sedated, hence not examined. DIAGNOSTIC TESTS: The patient's EKG a few months ago showed sinus rhythm without ST-segment elevation in the inferior leads. This morning at 8:[address]-segment elevation in the inferior leads and mild ST-segment depression in I and aVL which is definitely abnormal. His chest x-ray shows endotracheal tube tip 3 cm above the allen. There is nasogastric tube in the lower third of the esophagus. Suspected retrocardiac hiatal hernia. Minimal left retrocardiac atelectasis. No gross pleural effusions or pneumothorax. Heart size is normal. Normal vasculature. Stomach is decompressed under the left hemidiaphragm. Other labs noted. The KUB shows nasogastric tube extends below the diaphragm. The tip is in the body of the stomach. Bowel distention is noted including large and small bowel and with slight gastric distention as well. Lung bases appear clear. The tip of the endotracheal tube is above the allen. The patient's white count is 15,000; his hemoglobin is 16.9; hematocrit is 41.2; his platelet count is 150,000. The patient's sodium is 140.3, potassium 3.0. Chloride is 93. CO2 is 8. The patient's BUN is 20; creatinine is 1.82. GFR is reduced at 39 mL; this seems to be an acute renal failure. On the previous admissions, the patient's BUN and creatinine were normal. The patient's AST was elevated at 85. The patient's total bilirubin was 2.2. Direct bilirubin was 1.1. His ALT was normal at 68. Alkaline phosphatase was normal 84. His CPK-MB was elevated at 17.50. His cardiac enzymes were negative. Troponin-I was negative at 0.036, and subsequently, I found out that it was 0.022. His free T4 was 1.35, and his TSH was 2.05. The patient's lipase was 9881.1 which is high. CK was 766. The patient's ProTime is 13.2. INR is 0.97. D-dimer is 5.36. PTT is 25.9. The patient's salicylate was less than 1. The patient's acetaminophen was less than 10. Alcohol was less than 10. His urine marijuana, urine cocaine, urine benzodiazepine, urine amphetamine, urine phencyclidine, urine barbiturate screens were all negative. Urine methadone screen was negative. Urine opiate screen was negative. IMPRESSION: 1. Acute ST-elevation myocardial infarction. Recommend to start the patient on heparin. Continue beta matt. We will avoid angiotensin-converting enzyme inhibitors for the first 24 hours and also start the patient on aspirin. Would not use Lasix on this patient in view of the patient's history of alcoholism and his lipase being elevated and also no history available of a prior history of gastrointestinal bleed or any other bleed. Hence, it would be dangerous. Would recommend transfer to tertiary care center for further treatment. 2. Acute pancreatitis with elevated lipase. This can also cause inferior ST-elevation myocardial infarction type of picture. Hence, this has to be kept in mind. 3. Respiratory failure with hypoxemia. Would recommend continuing the patient on ventilator treatment and also steroids. Would recommend antibiotics and also recommend Xopenex treatment. 4. Acute renal failure most likely secondary to dehydration. 5. Hypertension. 6. High anion gap metabolic acidosis. 7. Elevated lipase secondary to acute pancreatitis. 8. Hyperammonemia. 9. Hypomagnesemia. Note the patient's magnesium was 1.4. 10. Alcohol dependency. 11. Lactic acidosis with metabolic acidosis. The patient's lactic acid is elevated at 3.2. RECOMMENDATIONS: As mentioned earlier, we will transfer the patient to a tertiary care center. Would not use Lasix as mentioned earlier. Would continue the patient on IV metoprolol and IV heparin and aspirin and other supportive treatment including antibiotics and IV fluids. Note that the patient is being transferred to [facility]. Later I called Dr. Gonsalo Graham of [facility] and explained to him that the possibility this might be an ST-elevation MT versus secondary to severe pancreatitis causing ST-segment elevation mimicking his previous MT. Note I saw the patient from 10:50 a.m. to 11:30 a.m., 40 minutes of care given to the patient and medications reviewed, and the treatment plan was discussed with attending physician, Dr. Liu. Also, the patient's medications were reviewed, and more than 50% of the time was spent on direct patient care. This case was very highly complex medical decision making in view of the ST-segment elevation in the inferior leads with differential diagnosis being secondary to ST-elevation MT in the inferior wall versus ST-elevation previously followed by pancreatitis. Also, discussed with Dr. Graham at length. 40 minutes spent on this patient. The patient is being transferred. An echocardiogram was ordered but could not be done since the flight ambulance personnel were here to take the patient to [facility]. DICTATING PHYSICIAN: JABARI JACQUES M.D. [id number] 2010 JAHAIRA#: [id number] 2013 ID: [id number] JOB#: [id number] ACCT: [id number] cc:JABARI JACQUES M.D. > MTDD
--- NOTE | 2016-12-12 13:40 | EKG REPORT ---
SEVERITY:- ABNORMAL ECG - SINUS TACHYCARDIA BORDERLINE R WAVE PROGRESSION, ANTERIOR LEADS NONSPECIFIC T ABNORMALITIES, INFERIOR LEADS : Confirmed by: Guerita Horne 12-Dec-2016 13:39:02
== END 2016-12-11 12:30 | disposition short-term general hospital (02) | DRG 208 ==
LOC: ER 04:06 → EH 07:47 → UNDOADMIN 08:59 → ICU 09:27
PROVIDERS: ADMIT Family Medicine; ATTEND Family Medicine
PROC: 5A1935Z Respiratory Ventilation, Less than 24 Consecutive Hours (ICD-10-PCS; principal; 2016-12-11)
PROC: 0BH17EZ Insertion of Endotracheal Airway into Trachea, Via Natural or Artificial Opening (ICD-10-PCS; 2016-12-11)
PROC: 02HV33Z Insertion of Infusion Device into Superior Vena Cava, Percutaneous Approach (ICD-10-PCS; 2016-12-11)
PROC: 0D9670Z Drainage of Stomach with Drainage Device, Via Natural or Artificial Opening (ICD-10-PCS; 2016-12-11)
DX: J96.01 Acute respiratory failure with hypoxia (principal); I21.19 ST elevation (STEMI) myocardial infarction involving other coronary artery of inferior wall; K85.90 Acute pancreatitis without necrosis or infection, unspecified; E87.2 Acidosis; E72.20 Disorder of urea cycle metabolism, unspecified; I42.9 Cardiomyopathy, unspecified; N17.9 Acute kidney failure, unspecified; J44.9 Chronic obstructive pulmonary disease, unspecified; E83.42 Hypomagnesemia; F10.20 Alcohol dependence, uncomplicated; I11.0 Hypertensive heart disease with heart failure; I50.9 Heart failure, unspecified; F43.10 Post-traumatic stress disorder, unspecified; E86.0 Dehydration; M19.90 Unspecified osteoarthritis, unspecified site; Z78.1 Physical restraint status; Z87.891 Personal history of nicotine dependence; Z79.899 Other long term (current) drug therapy; Z82.49 Family history of ischemic heart disease and other diseases of the circulatory system; Z84.89 Family history of other specified conditions
CPT/HCPCS: 36415; 51702; 71010; 74000; 80048; 80053; 80307; 81001; 82140; 82550; 82553; 82803; 83036; 83605; 83690; 83735; 84439; 84443; 84484; 85025; 85379; 85610; 85730; 87040; 87077; 87086; 93005; 93010; 94002; 94640; 96361; 96365; 96375; 96376; 99291; C1751; J0330; J1644; J2060; J2250; J2704; J2930; J3411; J3475; J3480; J3490; J7030; J7060; J7620

== ENCOUNTER → 2017-12-17 | Outpatient (CLI) | payer OTHER | LOC: OD 14:10 | PROVIDERS: ATTEND Radiology Radiation Oncology | DX: C61 Malignant neoplasm of prostate (principal); R97.20 Elevated prostate specific antigen [PSA] | CPT/HCPCS: 36415; 84153 ==

== ENCOUNTER → 2018-03-14 | Outpatient (CLI) | payer OTHER ==
[2018-03-14 15:47] LABS: ABSOLUTE EOSINOPHILS # (AUTO) 0.2 10^3/uL (0.0-0.6); ABSOLUTE LYMPHOCYTES (AUTO) 1.1 10^3/uL (0.5-4.7); ABSOLUTE MONOCYTES (AUTO) 0.6 10^3/uL (0.1-1.4); TOTAL CELLS COUNTED % (AUTO) 100 %
[2018-03-14 15:57] LABS: ABSOLUTE NEUT (AUTO) 4.2 10^3/uL (1.7-8.2); BASOPHILS % (AUTO) 0.4 % (0-2); EOSINOPHILS % (AUTO) 3.7 % (0-6); HEMATOCRIT 42.3 % (37.9-51.0); HEMOGLOBIN 14.4 g/dL (13.5-17.0); LYMPHOCYTES % (AUTO) 18.3 % (13-45); MEAN CORPUSCULAR HEMOGLOBIN 27.9 pg (27.0-33.4); MEAN CORPUSCULAR HGB CONC 34.1 g/dL (32.0-36.0); MEAN CORPUSCULAR VOLUME 82 fl (80-97); MONOCYTES % (AUTO) 10.1 % (3-13); PLATELET COUNT 218 10^3/uL (150-450); RED BLOOD COUNT 5.17 10^6/uL (4.35-5.55); RED CELL DISTRIBUTION WIDTH 14.4 % (11.5-14.0); SEGMENTED NEUTROPHILS % (AUTO) 67.5 % (42-78); WHITE BLOOD COUNT 6.2 10^3/uL (4.0-10.5)
== END ==
LOC: OD 14:21
PROVIDERS: ATTEND Radiology Radiation Oncology
DX: C61 Malignant neoplasm of prostate (principal); R97.20 Elevated prostate specific antigen [PSA]
CPT/HCPCS: 36415; 84153; 85025

== ENCOUNTER → 2018-07-17 | Outpatient (CLI) | payer OTHER | LOC: OD 09:11 | PROVIDERS: ATTEND Radiology Radiation Oncology | DX: C61 Malignant neoplasm of prostate (principal); R97.20 Elevated prostate specific antigen [PSA] | CPT/HCPCS: 36415; 84153 ==

== ENCOUNTER 2019-03-28 14:35 | Inpatient (IN) | payer OTHER ==
--- NOTE | 2019-03-28 15:04 | ER Document Report ---
ED General - General TRAVEL OUTSIDE OF THE [place] IN LAST 30 DAYS: No <IVONE STAFFORD - Last Filed: 03/28/19 18:15> <EVERETTE SMITH - Last Filed: 03/31/19 07:34> - General Chief Complaint: Altered Mental Status Stated Complaint: AMS - HPI Notes: 59-year-old male to the emergency department with complaints of altered mental status and tremors. Patient's called medics today when she thought that he was acutely confused and noticed that he had worsening tremors to his upper extremity. Patient admits that he drinks alcohol daily typically at fifth of gin. He has not had this much to drink and has actually significantly had less today. He states that he feels like his body is stiffening up on him and spasming. He states that he has a history of low potassium and he thinks that that might be the case. He states that he has been drinking heavy amounts of alcohol for several years. He does admit that at one time he tried to quit. When he did try to quit he had a seizure. He denies any chest pain, shortness of breath, nausea vomiting or diarrhea, headache. (IVONE STAFFORD) - Related Data Allergies/Adverse Reactions: No Known Allergies Allergy (Verified 12/11/16 05:01) Past Medical History - General Information source: Patient, Emergency Med Personnel - Social History Smoking Status: Current Every Day Smoker Chew tobacco use (# tins/day): No Frequency of alcohol use: Heavy Drug Abuse: None Lives with: Spouse/Significant other Family History: Reviewed & Not Pertinent, Hypertension, Other - Mom age 74 Alzheimer's Patient has suicidal ideation: No Patient has homicidal ideation: No - Past Medical History Cardiac Medical History: Reports: Hx Congestive Heart Failure - Cardiomyopathy, Hx Hypertension Denies: Hx Coronary Artery Disease, Hx Heart Attack Pulmonary Medical History: Reports: Hx COPD Denies: Hx Asthma, Hx Bronchitis, Hx Pneumonia Neurological Medical History: Reports: Hx Seizures - Secondary to alcohol. Denies: Hx Cerebrovascular Accident Renal/ Medical History: Denies: Hx Peritoneal Dialysis Musculoskeletal Medical History: Reports Hx Arthritis Psychiatric Medical History: Reports: Hx Post Traumatic Stress Disorder Denies: Hx Depression Past Surgical History: Reports: Hx Orthopedic Surgery - neck - Immunizations Hx Diphtheria, Pertussis, Tetanus Vaccination: No <IVONE STAFFORD - Last Filed: 03/28/19 18:15> Review of Systems - Review of Systems Constitutional: denies: Chills, Fever EENT: No symptoms reported Cardiovascular: denies: Chest pain, Palpitations, Dyspnea, Syncope, Dizziness, Lightheaded Respiratory: denies: Cough, Short of breath Gastrointestinal: denies: Abdominal pain, Diarrhea, Nausea, Vomiting Musculoskeletal: See HPI Skin: No symptoms reported Neurological/Psychological: See HPI, Confusion, Tremor. denies: Lost consciousness, Headaches, Numbness -: Yes All other systems reviewed and negative <IVONE STAFFORD - Last Filed: 03/28/19 18:15> Physical Exam - Vital signs Interpretation: Tachycardic - Patient tachycardic at 118, Tachypneic - General General appearance: Alert - HEENT Head: Normocephalic, Atraumatic Eyes: Normal Pupils: PERRL Ears: Normal External canal: Normal Tympanic membrane: Normal Sinus: Normal Nasal: Normal Mouth/Lips: Normal Mucous membranes: Normal Pharynx: Normal Neck: Normal - Respiratory Respiratory status: Tachypnea Chest status: Nontender Breath sounds: Normal. No: Decreased air movement, Rales, Rhonchi, Stridor, Wheezing Chest palpation: Normal - Cardiovascular Rhythm: Tachycardia Heart sounds: Normal auscultation, S1 appreciated, S2 appreciated Murmur: No - Abdominal Inspection: Normal Distension: No distension. No: Distended, Tympanitic, Fluid wave, Distended bladder Bowel sounds: Normal Tenderness: Nontender. No: McBurney's point, Woodall's sign, Guarding, Rebound Organomegaly: No organomegaly - Back Back: Normal, Nontender. No: CVA tenderness - Neurological Cognition: Confused Orientation: Disoriented to time - Patient thinks it is 2020. He is oriented to person and place. He is aware of who the president of [facility] is. Dior Coma Scale Eye Opening: Spontaneous [place] Coma Scale Verbal: Oriented [place] Coma Scale Motor: Obeys Commands [place] Coma Scale Total: 15 Speech: Normal Cranial nerves: Normal. 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 He is tremulous to bilateral hands on exam. (IVONE STAFFORD) - Cardiovascular Notes: No leg edema (IVONE STAFFORD) - Neurological Notes: Noted bilateral tremors to the hands and also to the legs. Patient attempts to hold his hands and fist to decrease the overall intensity of the tremors. There is no asterixis. (IVONE STAFFORD) Course - Laboratory Result Diagrams: 03/28/19 14:52 03/28/19 15:25 - Diagnostic Test Radiology reviewed: Image reviewed, Reports reviewed - EKG Interpretation by Me Rate: Tachycardia <STAFFORDIVONE MOYA - Last Filed: 03/28/19 18:15> - Laboratory Result Diagrams: 03/31/19 05:59 03/31/19 05:59 <EVERETTE SMITH - Last Filed: 03/31/19 07:34> - Re-evaluation Re-evalutation: 03/28/[address] Smith, ER attending. We agreed that patient should have 4 g of magnesium and 3g of calcium. We agreed that patient should be entered to the hospitalist service. Will add on phosphorus, PTH, TSH, ABG and page hospitalist service. Rounded on patient and his family. Patient is more confused than when he first came in. Attempted to give oral potassium but patient could not tolerate. Discussed patient with TOMMY gutiérrez, hospitalist TOMMY. He agrees with the plan for admission. Initially he requests a telemetry bed but after seeing patient he asked for ICU. He is aware of the severe electrolyte abnormalities as well as the pending lab work. He is aware that 4 g of magnesium and 3 g of calcium have been ordered and that I will order a run of potassium as well. Impression: Significant hypomagnesia, hypocalcemia. Tremors, alcohol withdrawal. Patient to be admitted to the ICU. Dr. Smith, Er attending, aware and agrees with the plan. Patient and family agree with the plan. 03/28/19 18:13 Noted ABG initially. It really does not correspond appropriately with patient. Discussed with Dr. Smith further. Will obtain redraw. 03/28/19 18:15 Noted repeat ABG which is much more consistent with patient's presentation. Rounded on family and patient. He is able to talk to me, but he is more confused than when I first evaluated him. He appears to be having delusions and no longer is oriented to place. Discussed patient with Dr. Smith further. He went and saw patient. (IVONE STAFFORD) I personally and independently obtained patient history and examined the patient in conjunction with the APC and agree with the assessment, treatment plan and disposition of the patient as recorded by the APC, and have reviewed the APC's note. HISTORY OF PRESENT ILLNESS: Patient is a 59-year-old male with history of alcoholism that presents to the emergency department for chief complaint of altered mental status and generalized weakness. PHYSICAL EXAMINATION: Vital signs reviewed, nursing noted reviewed. GENERAL: Patient is altered, tremulous, and appears confused HEAD: Atraumatic, normocephalic. EYES: Eyes appear normal, conjunctiva are normal. ENT: nares patent, oropharynx clear without exudates. Moist mucous membranes. NECK: Normal range of motion, supple without lymphadenopathy LUNGS: Breath sounds clear to auscultation bilaterally and equal. No wheezes rales or rhonchi. HEART: Heart rate tachycardic, regular rhythm, no audible murmur ABDOMEN: Soft, nontender, normoactive bowel sounds. No rebound, guarding, or rigidity. No masses appreciated. EXTREMITIES: Nontender, good range of motion, no pitting or edema. NEUROLOGICAL: Intention tremor noted bilaterally in the upper extremities, no focal neurological deficits. Moves all extremities spontaneously Motor and sensory grossly intact on exam. PSYCH: Patient does appear confused on exam, not answering all questions appropriately. SKIN: Warm, Dry, normal turgor, no rashes or lesions noted on exposed skin MEDICAL DECISION MAKING: Patient seen and examined, vital signs reviewed, patient did not appear well on exam, he had multiple electrolyte abnormalities on his blood work, likely consistent with the patient's alcoholism, but is very high risk for possible cardiac dysrhythmia, given severe hypo-Britney anemia, patient need to be admitted for treatment, and monitoring, in addition to treatment for alcohol withdrawal, and these electrolyte abnormalities. Please review detail APC documentation. *Note is created using voice recognition software and may contain spelling, syntax or grammatical errors. (EVERETTE SMITH) - Vital Signs Vital signs: Temp Pulse Resp BP Pulse Ox 98.9 F 106 H 44 H 145/107 H 98 03/30/19 17:59 03/30/19 20:00 03/31/19 06:00 03/31/19 05:15 03/31/19 06:00 (IVONE STAFFORD) - Laboratory Laboratory results interpreted by me: 03/28/19 03/28/19 03/28/19 14:52 14:58 15:25 WBC 16.1 H RBC 3.41 L Hgb 12.0 L Hct 34.9 L MCV 102 H MCH 35.3 H RDW 18.0 H Seg Neuts % (Manual) 87 H Lymphocytes % (Manual) 5 L Abs Neuts (Manual) 14.0 H Potassium 3.1 L Chloride 92 L BUN 29 H Creatinine 1.77 H Est GFR ( Amer) 48 L Est GFR (MDRD) Non-Af 40 L Glucose 113 H POC Glucose 120 H Calcium 5.5 L* Phosphorus Magnesium 0.4 L* Total Bilirubin 2.1 H Direct Bilirubin 1.1 H Creatine Kinase 03/28/19 03/28/19 15:25 15:25 WBC RBC Hgb Hct MCV MCH RDW Seg Neuts % (Manual) Lymphocytes % (Manual) Abs Neuts (Manual) Potassium Chloride BUN Creatinine Est GFR ( Amer) Est GFR (MDRD) Non-Af Glucose POC Glucose Calcium Phosphorus 6.0 H Magnesium Total Bilirubin Direct Bilirubin Creatine Kinase 948 H - EKG Interpretation by Me Additional EKG results interpreted by me: 03/28/19 No STEMI, rate of 114. Sinus tachycardia. There is diffuse T wave abnormalities throughout. QT C is 436 (IVONE STAFFORD) Critical Care Note - Critical Care Note Total time excluding time spent on procedures (mins): 45 <IVONE STAFFORD - Last Filed: 03/28/19 18:15> - Critical Care Note Comments: Critical Care was provided on this patient. Patient with significant and life threatening electrolyte abnormalities. 45 minutes was spent with consultations with ER attending, Hospitalist team, and bedside with family. (IVONE STAFFORD) Discharge - Discharge Admitting Provider: Jessica (Hospitalist) Unit Admitted: ICU <IVONE STAFFORD - Last Filed: 03/28/19 18:15> <EVERETTE SMITH - Last Filed: 03/31/19 07:34> - Discharge Clinical Impression: Hypomagnesemia, Hypokalemia, Hypocalcemia, Tremor, Alcohol abuse, Alcohol withdrawal delirium Condition: Stable Disposition: ADMITTED INPATIENT
[2019-03-28] MEDS ORDERED: THIAMINE HCL 100 MG, FOLIC ACID 1 MG in NORMAL SALINE 250 ML IV ONE (15:05)
[2019-03-28] MEDS ORDERED: NORMAL SALINE 1000 ML 1,000 ML IV ONE (15:05)
[2019-03-28] MEDS ORDERED: LORAZEPAM INJ 2 MG/1 ML VIAL IV ONE (15:13)
[2019-03-28 15:18] LABS: HEMATOCRIT 34.9 % (37.9-51.0); MEAN CORPUSCULAR HEMOGLOBIN 35.3 pg (27.0-33.4); MEAN CORPUSCULAR HGB CONC 34.5 g/dL (32.0-36.0); MEAN CORPUSCULAR VOLUME 102 fl (80-97); PLATELET COUNT 358 10^3/uL (150-450); RED BLOOD COUNT 3.41 10^6/uL (4.35-5.55); WHITE BLOOD COUNT 16.1 10^3/uL (4.0-10.5)
[2019-03-28 15:38] LABS: ABSOLUTE LYMPHOCYTES# (MANUAL) 0.8 10^3/uL (0.5-4.7); ABSOLUTE MONOCYTES # (MANUAL) 1.3 10^3/uL (0.1-1.4); BASOPHILS % (MANUAL) 0 % (0-2); EOSINOPHILS % (MANUAL) 0 % (0-6); LYMPHOCYTES % (MANUAL) 5 % (13-45); MONOCYTES % (MANUAL) 8 % (3-13); SEGMENTED NEUTROPHILS % (MAN) 87 % (42-78); TOTAL CELLS COUNTED 100
[2019-03-28 15:39] LABS: ANISOCYTOSIS 2+; PLATELET COMMENT ADEQUATE
[2019-03-28 15:52] LABS: ALBUMIN 4.1 g/dL (3.5-5.0); ALKALINE PHOSPHATASE 74 U/L (38-126); ASPARTATE AMINO TRANSFERASE 48 U/L (17-59); BILIRUBIN,DIRECT 1.1 mg/dL (0.0-0.4); BILIRUBIN,TOTAL 2.1 mg/dL (0.2-1.3); BLOOD UREA NITROGEN 29 mg/dL (7-20); CHLORIDE 92 mmol/L (98-107); GLUCOSE 113 mg/dL (75-110); POTASSIUM 3.1 mmol/L (3.6-5.0)
[2019-03-28 15:54] LABS: ALCOHOL < 10 mg/dL (NONE DETECTED)
[2019-03-28 15:57] LABS: ANION GAP 19 (5-19); CARBON DIOXIDE 26 mmol/L (22-30)
[2019-03-28 16:03] LABS: CALCIUM 5.5 mg/dL (8.4-10.2)
[2019-03-28] MEDS ORDERED: MAGNESIUM SULFATE 4 GM/100 ML RTUPB IV ONE (16:04)
[2019-03-28] MEDS ORDERED: POTASSIUM CHLORIDE 10 MEQ CAPSULE.ER PO ONE (16:04)
[2019-03-28] MEDS ORDERED: CALCIUM GLUCONATE 1000 MG/10 ML INJ IV ONE ×2 (16:13→22:55)
[2019-03-28] MEDS ORDERED: ACETAMINOPHEN 325 MG TABLET PO PRN (17:04)
[2019-03-28] MEDS ORDERED: DEXTROSE 40% GEL 15 GM TUBE PO PRN ×2 (17:04)
[2019-03-28] MEDS ORDERED: DEXTROSE 50%-WATER 25 GM/50 ML DISP.SYRIN IV PRN ×2 (17:04)
[2019-03-28] MEDS ORDERED: MAGNESIUM HYDROXIDE SUSP 30 ML UDCUP PO PRN (17:04)
[2019-03-28] MEDS ORDERED: ONDANSETRON HCL INJ/PF 4 MG/2 ML SDV IV PRN (17:04)
[2019-03-28] MEDS ORDERED: GLUCAGON,HUMAN RECOMB 1 MG INJ SUBCUT PRN (17:04)
[2019-03-28 17:16] LABS: ARTERIAL BLOOD BASE EXCESS -0.3 mmol/L; ARTERIAL BLOOD H2CO3 1.25 mmol/L (1.05-1.35); ARTERIAL BLOOD HCO3 24.6 mmol/L (20-24); ARTERIAL BLOOD O2 SATURATION 72.3 % (94-98); ARTERIAL BLOOD PCO2 41.4 mmHg (35-45); ARTERIAL BLOOD PH 7.39 (7.35-7.45); ARTERIAL BLOOD TOTAL CO2 25.9 mmol/L (23-27)
[2019-03-28 17:18] LABS: ARTERIAL BLOOD FIO2 2L; ARTERIAL BLOOD PO2 38.4 mmHg (80-100)
--- NOTE | 2019-03-28 17:36 | PDOC H&P ---
History of Present Illness Admission Date/PCP: 03/28/19 16:36 03/28/2019 History of Present Illness: BILLIE ARRIOLA is a 59 year old male Mr. Arriola is a 59-year-old black male who comes in with altered mental status, confusion 5 days. Cording to the the patient charted having these problems on Saturday, Saturday he went to his primary care doctor and had lab work drawn. On Saturday his primary care provider called and said that he need to start taking potassium that his potassium was low into the medications I have reviewed he was 20 mEq daily. He states that in the last day or 2 his confusion is gotten worse, also he started having tremors and shaking all over. Cording to the and the daughter this in the room he is never had this type of behavior before. Patient has a long history of alcohol abuse. The patient is able to answer me and states that he drinks 2 fifths of Gin gin per day, and has done so for a number of years. Approximately 1 year ago the patient was 2 months then for 2 months when he got out of rehab he was sober. After that however he started drinking heavily again. Other past medical history includes hypertension. 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 Endocrine Medical History: Reports: None Renal/ Medical History: Reports: None Malignancy Medical History: Reports: None GI Medical History: Reports: None Musculoskeltal Medical History: Reports: Arthritis Psychiatric Medical History: Reports: Alcohol Dependency, Post Traumatic Stress Disorder Denies: Depression Hematology: Denies: Anemia Past Surgical History Past Surgical History: Reports: Orthopedic Surgery - neck Social History Lives with: Spouse/Significant other Smoking Status: Current Every Day Smoker Frequency of Alcohol Use: Heavy Hx Recreational Drug Use: No Drugs: None Hx Prescription Drug Abuse: No - Advance Directive Resuscitation Status: Full Code Family History Family History: Reviewed & Not Pertinent, Hypertension, Other - Mom age 74 Alzheimer's Parental Family History Reviewed: No Children Family History Reviewed: No Sibling(s) Family History Reviewed.: No Medication/Allergy Home Medications: Unobtainable 12/11/16 Allergies/Adverse Reactions: No Known Allergies Allergy (Verified 12/11/16 05:01) Review of Systems All systems: reviewed and no additional remarkable complaints except as stated Constitutional: ABSENT: chills, fever(s), headache(s), weight gain, weight loss Eyes: ABSENT: visual disturbances Cardiovascular: ABSENT: chest pain, dyspnea on exertion, edema, orthropnea, palpitations Respiratory: ABSENT: cough, hemoptysis Gastrointestinal: ABSENT: abdominal pain, constipation, diarrhea, hematemesis, hematochezia, nausea, vomiting Neurological: ABSENT: abnormal gait, abnormal speech, confusion, dizziness, focal weakness, syncope Psychiatric: ABSENT: anxiety, depression, homidical ideation, suicidal ideation Physical Exam Vital Signs: Temp Pulse Resp BP Pulse Ox 98.2 F 34 H 127/87 H 96 03/28/19 17:00 03/28/19 17:00 03/28/19 15:01 03/28/19 17:00 Intake & Output 03/27/19 03/28/19 03/29/19 06:59 06:59 06:59 Intake Total 251.2 Balance 251.2 Weight 95.254 kg General appearance: PRESENT: cooperative, severe distress Head exam: PRESENT: atraumatic, normocephalic Respiratory exam: PRESENT: clear to auscultation sidney. ABSENT: rales, rhonchi, wheezes Cardiovascular exam: PRESENT: RRR. ABSENT: diastolic murmur, rubs, systolic murmur GI/Abdominal exam: PRESENT: normal bowel sounds, soft. ABSENT: distended, guarding, mass, organolmegaly, rebound, tenderness Musculoskeletal exam: PRESENT: other - Patient has bilateral carpal spasms. 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 Patient has what appears to be involuntary tremors worse in both upper extremities than lower, patient is able to move all 4 extremities against gravity Psychiatric exam: PRESENT: unusual affect, other - Does not open his eyes while I was in the room but he does answer questions, he does follow commands, Results Laboratory Results: 03/28/19 14:52 03/28/19 15:25 08/03/28/19 03/28/19 14:52 14:52 15:25 WBC 16.1 H RBC 3.41 L Hgb 12.0 L Hct 34.9 L MCV 102 H MCH 35.3 H MCHC 34.5 RDW 18.0 H Plt Count 358 Seg Neutrophils % Not Reportable Carbonic Acid HCO3/H2CO3 Ratio ABG pH ABG pCO2 ABG pO2 ABG HCO3 ABG O2 Saturation ABG Base Excess FiO2 Sodium Cancelled 137.0 Potassium Cancelled 3.1 L Chloride Cancelled 92 L Carbon Dioxide Cancelled 26 Anion Gap Cancelled 19 BUN Cancelled 29 H Creatinine Cancelled 1.77 H Est GFR ( Amer) Cancelled 48 L Est GFR (Non-Af Amer) Cancelled Glucose Cancelled 113 H Calcium Cancelled 5.5 L* Ionized Calcium Pratibha Phosphorus Magnesium Cancelled 0.4 L* Total Bilirubin Cancelled 2.1 H AST Cancelled 48 Alkaline Phosphatase Cancelled 74 Total Protein Cancelled 8.0 Albumin Cancelled 4.1 03/28/19 03/28/19 03/28/19 15:25 17:08 17:08 WBC RBC Hgb Hct MCV MCH MCHC RDW Plt Count Seg Neutrophils % Carbonic Acid 1.25 HCO3/H2CO3 Ratio 19:1 ABG pH 7.39 ABG pCO2 41.4 ABG pO2 38.4 L* ABG HCO3 24.6 H ABG O2 Saturation 72.3 L ABG Base Excess -0.3 FiO2 2L Sodium Potassium Chloride Carbon Dioxide Anion Gap BUN Creatinine Est GFR ( Amer) Est GFR (Non-Af Amer) Glucose Calcium Ionized Calcium Pratibha 0.73 L Phosphorus 6.0 H Magnesium Total Bilirubin AST Alkaline Phosphatase Total Protein Albumin Assessment and Plan - Diagnosis (1) Alcohol abuse Is this a current diagnosis for this admission?: Yes Plan: Patient and his family state that he last had his normal consumption of alcohol 2 days ago, which is approximately 2/5 of gin per day. His states that this morning he just had a couple of drinks. He has been an alcoholic for many years and is been in rehab in the past. (2) Hypocalcemia Is this a current diagnosis for this admission?: Yes Plan: Patient's calcium level in the ER is 5.5 and are normal range here is from 8.4- 10.2. Patient's albumin level is normal (3) Hypomagnesemia Is this a current diagnosis for this admission?: Yes Plan: Patient's magnesium level is 0.4 with our normal range being 1.6-2.3 (4) Tremor Is this a current diagnosis for this admission?: Yes Plan: She has what appears to be involuntary tremors of all 4 extremities, with the upper worse in the lower patient also has what appears to be carpal spasms of both hands (5) Hypertension Qualifiers: Hypertension type: essential hypertension Qualified Code(s): I10 - Essential (primary) hypertension Is this a current diagnosis for this admission?: Yes Plan: Patient is taking medication for hypertension Coreg 3.125 , Lasix 40 mg a day, Norvasc 5mg - Time Time Spent with patient: 25-34 minutes
--- NOTE | 2019-03-28 17:38 | Progress Note ---
Provider Note Provider Note: I did explain to the and daughter that this could be a serious life- threatening illness, concerning cardiac arrhythmias secondary to the electrolyte imbalance she expressed her desire for him to be a full code Patient has been given magnesium replacement as well as calcium replacement in the ED, EKG is pending and currently not done. Patient appears to be stable now for transfer to the ICU
[2019-03-28] MEDS ORDERED: POTASSI CL 20 MEQ/50 ML RIDER 20 MEQ/50 ML RTUPB IV ONE (17:41)
[2019-03-28] MEDS ORDERED: TAMSULOSIN HCL 0.4 MG CAP.SR.24H PO SCH (18:00)
[2019-03-28] MEDS ORDERED: LORAZEPAM 1 MG TABLET PO SCH (18:00)
[2019-03-28] MEDS: NORMAL SALINE 1000 ML 1,000 ML IV PRN (18:09)
[2019-03-28 18:10] LABS: ARTERIAL BLOOD BASE EXCESS -0.4 mmol/L; ARTERIAL BLOOD H2CO3 0.92 mmol/L (1.05-1.35); ARTERIAL BLOOD HCO3 22.4 mmol/L (20-24); ARTERIAL BLOOD O2 SATURATION 97.8 % (94-98); ARTERIAL BLOOD PCO2 30.6 mmHg (35-45); ARTERIAL BLOOD PH 7.48 (7.35-7.45); ARTERIAL BLOOD PO2 95.7 mmHg (80-100); ARTERIAL BLOOD TOTAL CO2 23.3 mmol/L (23-27)
[2019-03-28 18:11] LABS: ARTERIAL BLOOD FIO2 2L
[2019-03-28] MEDS ORDERED: DIAZEPAM INJ 10 MG/2 ML DISP.SYRIN IV ONE (18:24)
--- NOTE | 2019-03-28 18:40 | RADIOLOGY REPORT (SQ) ---
EXAM DESCRIPTION: CHEST SINGLE VIEW COMPLETED DATE/TIME: 03/28/2019 5:46 pm REASON FOR STUDY: hypomagnesium COMPARISON: Chest x-ray 12/11/2016. EXAM PARAMETERS: NUMBER OF VIEWS: One view. TECHNIQUE: 2 frontal radiographic views of the chest acquired. RADIATION DOSE: NA LIMITATIONS: None. FINDINGS: LUNGS AND PLEURA: There is elevation of the right hemidiaphragm. Airspace opacities are n oted at the bilateral lung bases. No sizable pleural effusion or pneumothorax. MEDIASTINUM AND HILAR STRUCTURES: No masses. Contour normal. HEART AND VASCULAR STRUCTURES: Heart normal in size. No overt vascular congestion. BONES: No acute findings. HARDWARE: Orthopedic hardware noted at the lower cervical spine. IMPRESSION: Bibasilar airspace opacities, may be secondary to atelectasis or pneumonia. TECHNICAL DOCUMENTATION: JOB ID: [id number] [employer]- All Rights Reserved Reading location - IP/workstation name: [email or web address]
--- NOTE | 2019-03-28 19:05 | EKG REPORT ---
SEVERITY:- ABNORMAL ECG - SINUS TACHYCARDIA NONSPECIFIC T ABNORMALITIES, DIFFUSE LEADS : Confirmed by: Bella Sanchez MD 28-Mar-2019 19:05:09
[2019-03-28] MEDS ORDERED: ACETAMINOPHEN 650 MG SUPP.RECT PR ONE ×2 (19:09→19:20)
[2019-03-28 19:32] LABS: PROTHROMBIN TIME 17.2 SEC (11.4-15.4)
[2019-03-28 19:33] LABS: PARTIAL THROMBOPLASTIN TIME 40.7 SEC (23.5-35.8)
[2019-03-28] MEDS ORDERED: ACETAMINOPHEN 650 MG SUPP.RECT PR PRN (20:08)
[2019-03-28] MEDS ORDERED: HYDRALAZINE HCL INJ/PF 20 MG/1 ML SDV IV PRN (20:11)
[2019-03-28 20:21] LABS: APPEARANCE,URINE CLEAR; BILIRUBIN,URINE NEGATIVE (NEGATIVE); COLOR,URINE AMBER; GLUCOSE, URINE NEGATIVE (NEGATIVE); KETONES,URINE TRACE mg/dL (NEGATIVE); LEUKOCYTE ESTERASE,URINE NEGATIVE (NEGATIVE); NITRITE,URINE NEGATIVE (NEGATIVE); PROTEIN,URINE 30 mg/dL (NEGATIVE); URINE SPECIFIC GRAVITY 1.016
[2019-03-28 20:46] LABS: ALBUMIN 3.5 g/dL (3.5-5.0); ANION GAP 19 (5-19); BLOOD UREA NITROGEN 27 mg/dL (7-20); CARBON DIOXIDE 22 mmol/L (22-30); CHLORIDE 95 mmol/L (98-107); GLUCOSE 115 mg/dL (75-110)
[2019-03-28 20:46] LABS: URINE AMPHETAMINES SCREEN NEGATIVE; URINE BARBITURATES SCREEN NEGATIVE; URINE BENZODIAZEPINES SCREEN NEGATIVE; URINE COCAINE SCREEN NEGATIVE; URINE MARIJUANA (THC) SCREEN NEGATIVE; URINE METHADONE SCREEN NEGATIVE; URINE PHENCYCLIDINE SCREEN NEGATIVE
[2019-03-28 20:49] LABS: POTASSIUM 2.9 mmol/L (3.6-5.0)
[2019-03-28] MEDS ORDERED: MAGNESIUM SULFATE/D5W 1 GM/100 ML RTUPB IV ONE ×2 (21:13→21:30)
[2019-03-28] MEDS: METOPROLOL TARTRATE PF/INJ 5 MG/5 ML SDV IV SCH (21:20)
[2019-03-28] MEDS: HEPARIN SOD (PORCINE) 5,000 UNIT/ML 1 ML VIAL SUBCUT SCH (21:21)
[2019-03-28] MEDS: POTASSIUM CHLORIDE 20 MEQ/50 ML RTU IV SCH ×2 (21:25→23:14)
[2019-03-28] MEDS: MONTELUKAST SODIUM 10 MG TABLET PO SCH (21:25)
[2019-03-28] MEDS ORDERED: AMLODIPINE BESYLATE 5 MG TABLET PO SCH (22:00)
[2019-03-28] MEDS ORDERED: TRAZODONE HCL 50 MG TABLET PO SCH (22:00)
[2019-03-28] MEDS ORDERED: CARVEDILOL 3.125 MG TABLET PO SCH (22:00)
[2019-03-28] MEDS: CALCIUM GLUCONATE 1000 MG/10 ML INJ IV SCH ×2 (22:57→23:12)
[2019-03-29] MEDS: METOPROLOL TARTRATE PF/INJ 5 MG/5 ML SDV IV SCH ×6 (01:22→21:59)
[2019-03-29] MEDS: POTASSIUM CHLORIDE 20 MEQ/50 ML RTU IV SCH ×4 (01:22→13:23)
[2019-03-29] MEDS: NORMAL SALINE 1000 ML 1,000 ML IV PRN ×2 (01:22→05:53)
[2019-03-29] MEDS ORDERED: CALCIUM GLUCONATE 1000 MG/10 ML INJ IV ONE ×3 (01:41→17:15)
[2019-03-29] MEDS: CALCIUM GLUCONATE 1000 MG/10 ML INJ IV SCH ×7 (01:51→23:30)
[2019-03-29] MEDS: HEPARIN SOD (PORCINE) 5,000 UNIT/ML 1 ML VIAL SUBCUT SCH ×3 (05:52→21:58)
[2019-03-29 06:26] LABS: HEMATOCRIT 31.4 % (37.9-51.0); HEMOGLOBIN 10.6 g/dL (13.5-17.0); MEAN CORPUSCULAR HEMOGLOBIN 34.7 pg (27.0-33.4); MEAN CORPUSCULAR HGB CONC 33.8 g/dL (32.0-36.0); MEAN CORPUSCULAR VOLUME 103 fl (80-97); PLATELET COUNT 250 10^3/uL (150-450); RED BLOOD COUNT 3.06 10^6/uL (4.35-5.55); RED CELL DISTRIBUTION WIDTH 17.9 % (11.5-14.0); WHITE BLOOD COUNT 12.2 10^3/uL (4.0-10.5)
[2019-03-29 06:45] LABS: ALBUMIN 3.1 g/dL (3.5-5.0); ALKALINE PHOSPHATASE 77 U/L (38-126); ANION GAP 16 (5-19); ASPARTATE AMINO TRANSFERASE 156 U/L (17-59); BILIRUBIN,DIRECT 1.3 mg/dL (0.0-0.4); BILIRUBIN,TOTAL 2.1 mg/dL (0.2-1.3); BLOOD UREA NITROGEN 22 mg/dL (7-20); CALCIUM 7.7 mg/dL (8.4-10.2); CARBON DIOXIDE 21 mmol/L (22-30); CHLORIDE 102 mmol/L (98-107); GLUCOSE 112 mg/dL (75-110); PHOSPHORUS 5.9 mg/dL (2.5-4.5); TOTAL PROTEIN 6.2 g/dL (6.3-8.2)
[2019-03-29 06:57] LABS: AMYLASE < 30 U/L (30-110)
[2019-03-29 06:59] LABS: ABSOLUTE LYMPHOCYTES# (MANUAL) 0.7 10^3/uL (0.5-4.7); ANISOCYTOSIS 1+; BAND NEUTROPHILS % (MANUAL) 1 % (3-5); BASOPHILS % (MANUAL) 0 % (0-2); EOSINOPHILS % (MANUAL) 0 % (0-6); LYMPHOCYTES % (MANUAL) 6 % (13-45); MONOCYTES % (MANUAL) 8 % (3-13); SEGMENTED NEUTROPHILS % (MAN) 85 % (42-78); TOTAL CELLS COUNTED 100
[2019-03-29 07:00] LABS: PLATELET COMMENT ADEQUATE
[2019-03-29] MEDS ORDERED: LORAZEPAM INJ 2 MG/1 ML VIAL IV PRN (08:23)
[2019-03-29] MEDS ORDERED: NORMAL SALINE 1000 ML 1,000 ML with POTASSIUM CHLORIDE 40 MEQ IV PRN ×2 (08:24)
--- NOTE | 2019-03-29 08:38 | Progress Note Acknowledgement ---
Progress Note Acknowledgement Progess Note Acknowledgement: I, the undersigned member of the medical staff with appropriate privileges and with supervisory authority over [Nhan Hernandez], a dependent practice allied health professional, acknowledge that I have reviewed the progress notes entered on this patient, and in my professional judgment believe that the assessment made and/or any care evidenced was appropriate
--- NOTE | 2019-03-29 08:38 | PDOC PROGRESS REPORT ---
Subjective Progress Note for:: 03/29/19 Subjective:: March 29, 2019-no complaints at this time. Patient with visible shakes not sure if this is beginning of withdrawal or from his tetany Reason For Visit: ALCOHOL ABUSE, HYPOMAGNESIUM,HYPOCALCEMIA,HYPERTEN Physical Exam Vital Signs: Temp Pulse Resp BP Pulse Ox 98.4 F 99 17 127/95 H 96 03/29/19 08:00 03/29/19 08:00 03/29/19 08:00 03/29/19 08:00 03/29/19 08:00 Intake & Output 03/28/19 03/29/19 03/30/19 06:59 06:59 06:59 Intake Total 3324.2 Output Total 1650 305 Balance 1674.2 -305 Weight 92 kg General appearance: PRESENT: no acute distress, well-developed, well-nourished Neck exam: ABSENT: carotid bruit, JVD, lymphadenopathy, thyromegaly Respiratory exam: PRESENT: clear to auscultation sidney. ABSENT: rales, rhonchi, wheezes Cardiovascular exam: PRESENT: RRR. ABSENT: diastolic murmur, rubs, systolic murmur Pulses: PRESENT: normal dorsalis pedis pul Vascular exam: PRESENT: normal capillary refill GI/Abdominal exam: PRESENT: normal bowel sounds, soft. ABSENT: distended, guarding, mass, organolmegaly, rebound, tenderness Extremities exam: PRESENT: full ROM. ABSENT: calf tenderness, clubbing, pedal edema Neurological exam: PRESENT: alert, altered, awake Psychiatric exam: PRESENT: other - Unable to assess as patient has some confusion Skin exam: PRESENT: dry, intact, warm. ABSENT: cyanosis, rash Results Laboratory Results: 03/29/19 06:05 03/29/19 06:05 03/28/19 03/28/19 03/28/19 14:52 14:52 15:25 WBC 16.1 H RBC 3.41 L Hgb 12.0 L Hct 34.9 L MCV 102 H MCH 35.3 H MCHC 34.5 RDW 18.0 H Plt Count 358 Seg Neutrophils % Not Reportable Carbonic Acid HCO3/H2CO3 Ratio ABG pH ABG pCO2 ABG pO2 ABG HCO3 ABG O2 Saturation ABG Base Excess FiO2 Sodium Cancelled 137.0 Potassium Cancelled 3.1 L Chloride Cancelled 92 L Carbon Dioxide Cancelled 26 Anion Gap Cancelled 19 BUN Cancelled 29 H Creatinine Cancelled 1.77 H Est GFR ( Amer) Cancelled 48 L Est GFR (Non-Af Amer) Cancelled Glucose Cancelled 113 H Calcium Cancelled 5.5 L* Ionized Calcium Pratibha Phosphorus Magnesium Cancelled 0.4 L* Total Bilirubin Cancelled 2.1 H AST Cancelled 48 Alkaline Phosphatase Cancelled 74 Ammonia Total Protein Cancelled 8.0 Albumin Cancelled 4.1 Amylase Lipase TSH PTH Intact Urine Color Urine Appearance Urine pH Ur Specific [place] Urine Protein Urine Glucose (UA) Urine Ketones Urine Blood Urine Nitrite Ur Leukocyte Esterase Urine WBC (Auto) Urine RBC (Auto) 03/28/19 03/28/19 03/28/19 15:25 17:08 17:08 WBC RBC Hgb Hct MCV MCH MCHC RDW Plt Count Seg Neutrophils % Carbonic Acid HCO3/H2CO3 Ratio ABG pH ABG pCO2 ABG pO2 ABG HCO3 ABG O2 Saturation ABG Base Excess FiO2 Sodium Potassium Chloride Carbon Dioxide Anion Gap BUN Creatinine Est GFR ( Amer) Est GFR (Non-Af Amer) Glucose Calcium Ionized Calcium Pratibha 0.73 L Phosphorus 6.0 H Magnesium Total Bilirubin AST Alkaline Phosphatase Ammonia Total Protein Albumin Amylase Lipase TSH PTH Intact 165.5 H Urine Color Urine Appearance Urine pH Ur Specific [place] Urine Protein Urine Glucose (UA) Urine Ketones Urine Blood Urine Nitrite Ur Leukocyte Esterase Urine WBC (Auto) Urine RBC (Auto) 03/28/19 03/28/19 03/28/19 17:08 17:57 19:20 WBC RBC Hgb Hct MCV MCH MCHC RDW Plt Count Seg Neutrophils % Carbonic Acid 1.25 0.92 L HCO3/H2CO3 Ratio 19:1 24:1 ABG pH 7.39 7.48 H ABG pCO2 41.4 30.6 L ABG pO2 38.4 L* 95.7 ABG HCO3 24.6 H 22.4 ABG O2 Saturation 72.3 L 97.8 ABG Base Excess -0.3 -0.4 FiO2 2L 2L Sodium Potassium Chloride Carbon Dioxide Anion Gap BUN Creatinine Est GFR ( Amer) Est GFR (Non-Af Amer) Glucose Calcium Ionized Calcium Pratibha Phosphorus Magnesium Total Bilirubin AST Alkaline Phosphatase Ammonia < 8.7 L Total Protein Albumin Amylase Lipase TSH PTH Intact Urine Color Urine Appearance Urine pH Ur Specific [place] Urine Protein Urine Glucose (UA) Urine Ketones Urine Blood Urine Nitrite Ur Leukocyte Esterase Urine WBC (Auto) Urine RBC (Auto) 03/28/19 03/28/19 03/28/19 19:20 19:35 21:11 WBC RBC Hgb Hct MCV MCH MCHC RDW Plt Count Seg Neutrophils % Carbonic Acid HCO3/H2CO3 Ratio ABG pH ABG pCO2 ABG pO2 ABG HCO3 ABG O2 Saturation ABG Base Excess FiO2 Sodium 135.5 L Potassium 2.9 L* Chloride 95 L Carbon Dioxide 22 Anion Gap 19 BUN 27 H Creatinine 1.38 H Est GFR ( Amer) > 60 Est GFR (Non-Af Amer) Glucose 115 H Calcium 6.0 L* Ionized Calcium Pratibha 0.78 L Phosphorus Magnesium 1.6 D Total Bilirubin AST Alkaline Phosphatase Ammonia Total Protein Albumin 3.5 Amylase Lipase TSH PTH Intact Urine Color STEPHANIE Urine Appearance CLEAR Urine pH 6.0 Ur Specific [place] 1.016 Urine Protein 30 H Urine Glucose (UA) NEGATIVE Urine Ketones TRACE H Urine Blood SMALL H Urine Nitrite NEGATIVE Ur Leukocyte Esterase NEGATIVE Urine WBC (Auto) 2 Urine RBC (Auto) 1 03/29/19 03/29/19 03/29/19 00:34 06:05 06:05 WBC 12.2 H RBC 3.06 L Hgb 10.6 L Hct 31.4 L MCV 103 H MCH 34.7 H MCHC 33.8 RDW 17.9 H Plt Count 250 Seg Neutrophils % Not Reportable Carbonic Acid HCO3/H2CO3 Ratio ABG pH ABG pCO2 ABG pO2 ABG HCO3 ABG O2 Saturation ABG Base Excess FiO2 Sodium 139.1 Potassium 3.0 L* Chloride 102 Carbon Dioxide 21 L Anion Gap 16 BUN 22 H Creatinine 0.99 Est GFR ( Amer) > 60 Est GFR (Non-Af Amer) Glucose 112 H Calcium 7.7 L Ionized Calcium Pratibha 0.92 L Phosphorus 5.9 H Magnesium 1.8 Total Bilirubin 2.1 H AST 156 H Alkaline Phosphatase 77 Ammonia Total Protein 6.2 L Albumin 3.1 L Amylase < 30 L Lipase 41.6 TSH PTH Intact Urine Color Urine Appearance Urine pH Ur Specific [place] Urine Protein Urine Glucose (UA) Urine Ketones Urine Blood Urine Nitrite Ur Leukocyte Esterase Urine WBC (Auto) Urine RBC (Auto) 03/29/19 03/29/19 06:05 06:05 WBC RBC Hgb Hct MCV MCH MCHC RDW Plt Count Seg Neutrophils % Carbonic Acid HCO3/H2CO3 Ratio ABG pH ABG pCO2 ABG pO2 ABG HCO3 ABG O2 Saturation ABG Base Excess FiO2 Sodium Potassium Chloride Carbon Dioxide Anion Gap BUN Creatinine Est GFR ( Amer) Est GFR (Non-Af Amer) Glucose Calcium Ionized Calcium Pratibha 1.01 L Phosphorus Magnesium Total Bilirubin AST Alkaline Phosphatase Ammonia Total Protein Albumin Amylase Lipase TSH 0.48 PTH Intact Urine Color Urine Appearance Urine pH Ur Specific [place] Urine Protein Urine Glucose (UA) Urine Ketones Urine Blood Urine Nitrite Ur Leukocyte Esterase Urine WBC (Auto) Urine RBC (Auto) 03/28/19 03/28/19 15:25 15:25 Creatine Kinase 948 H Troponin I < 0.012 Impressions: Chest X-Ray 03/28/19 17:12 IMPRESSION: Bibasilar airspace opacities, may be secondary to atelectasis or pneumonia. Assessment and Plan - Diagnosis (1) Alcohol abuse Is this a current diagnosis for this admission?: Yes Plan: Patient and his family state that he last had his normal consumption of alcohol 2 days ago, which is approximately 2/5 of gin per day. His states that this morning he just had a couple of drinks. He has been an alcoholic for many years and is been in rehab in the past. March 29, 2019-patient with visible shaking at this time. I have added Ativan 2 mg IV every 3 hours as needed. We will aggressively watch patient for any signs of DTs and treat aggressively. I also placed patient on banana bag daily. Patient unable to swallow at this time so we cannot give oral medications. (2) Hypocalcemia Is this a current diagnosis for this admission?: Yes Plan: Patient's calcium level in the ER is 5.5 and are normal range here is from 8.4- 10.2. Patient's albumin level is normal March 29, 2019-patient's calcium now7.7 after 10 runs of 1 g of calcium gluconate. Patient is now on calcium replacement protocol. I have added a vitamin D and a PTH to determine if these may be contributing factors to patient's hypocalcemia. We will continue to follow (3) Hypomagnesemia Is this a current diagnosis for this admission?: Yes Plan: Patient's magnesium level is 0.4 with our normal range being 1.6-2.3 March 29, 2019-magnesium level normalized today. We will repeat magnesium leve l in a.m. (4) Tremor Is this a current diagnosis for this admission?: Yes Plan: She has what appears to be involuntary tremors of all 4 extremities, with the upper worse in the lower patient also has what appears to be carpal spasms of both hands March 29, 2019-patient does have involuntary jerking motions of all extremities. I suspect this is the start of alcohol withdrawal. We are going to aggressively monitor patient and aggressively treat if he does go to DTs. Calcium is almost corrected at this time so I doubt this is still tetany. We will continue to follow with serial calcium levels (5) Hypertension Qualifiers: Hypertension type: essential hypertension Qualified Code(s): I10 - Essential (primary) hypertension Is this a current diagnosis for this admission?: Yes Plan: Patient is taking medication for hypertension Coreg 3.125 , Lasix 40 mg a day, Norvasc 5mg March 29, 2019-patient is stable with his blood pressure at this time. We will monitor his blood pressure if he starts having hypertension we will treat as appropriate. Patient is known alcoholic and may go to DTs so at that time hypertension will be signs of withdrawal. (6) Hypokalemia Is this a current diagnosis for this admission?: Yes Plan: March 29, 2019-patient had a complete bit of potassium overnight. Potassium level 3.0 at this time. Patient continues to get potassium runs I will add 40 mg of Potassium to normal saline to run at 150 mL/h as well. We will continue to monitor with serial potassium levels. (7) Acute kidney injury Is this a current diagnosis for this admission?: Yes Plan: March 29, 2019-patient had a admission creatinine of 1.38 it is down to 0.99 this morning. We will continue to hydrate we will continue with daily renal panels. - Time Time Spent with patient: 25-34 minutes - Inpatient Certification Based on my medical assessment, after consideration of the patient's c omorbidities, presenting symptoms, or acuity I expect that the services needed warrant INPATIENT care.: Yes I certify that my determination is in accordance with my understanding of Medicare's requirements for reasonable and necessary INPATIENT services [42 CFR 412.3e].: Yes Medical Necessity: Other - IV fluids, rally pack, electrolyte replacement
[2019-03-29] MEDS: POTASSI CL 40 MEQ/NS 1L 1,000 ML IV PRN ×2 (09:05→15:57)
[2019-03-29] MEDS: PANTOPRAZOLE SODIUM 40 MG VIAL IV SCH (09:22)
[2019-03-29] MEDS: DIAZEPAM INJ 10 MG/2 ML DISP.SYRIN IV PRN ×4 (09:22→21:58)
--- NOTE | 2019-03-29 09:31 | EKG REPORT ---
SEVERITY:- ABNORMAL ECG - SINUS TACHYCARDIA [Remains] VENTRICULAR PREMATURE COMPLEX [Now Present] BORDERLINE LEFT AXIS DEVIATION [Now Present] BORDERLINE R WAVE PROGRESSION, ANTERIOR LEADS [Insig. Chg.] BORDERLINE T WAVE ABNORMALITIES [Remains] BORDERLINE PROLONGED QT INTERVAL [Now Present] SIGNIFICANT ECG CONTOUR CHANGES : Confirmed by: Bella Sanchez MD 29-Mar-2019 09:29:36
[2019-03-29] MEDS ORDERED: FUROSEMIDE 20 MG TABLET PO SCH (10:00)
[2019-03-29] MEDS ORDERED: DOCUSATE SODIUM 100 MG CAPSULE PO SCH (10:00)
[2019-03-29] MEDS: LORAZEPAM INJ 2 MG/1 ML VIAL IV PRN ×5 (11:13→21:59)
[2019-03-29] MEDS: NORMAL SALINE 1000 ML 1,000 ML with THIAMINE HCL 100 MG, MVI, ADULT NO.1 WITH VIT K 10 ML IV SCH ×3 (17:10)
[2019-03-29 19:44] LABS: POTASSIUM 3.8 mmol/L (3.6-5.0)
[2019-03-29 19:54] LABS: PHOSPHORUS 3.3 mg/dL (2.5-4.5)
[2019-03-29] MEDS: MONTELUKAST SODIUM 10 MG TABLET PO SCH (21:59)
[2019-03-30] MEDS: METOPROLOL TARTRATE PF/INJ 5 MG/5 ML SDV IV SCH ×6 (01:37→21:07)
[2019-03-30] MEDS: LORAZEPAM INJ 2 MG/1 ML VIAL IV PRN ×9 (02:28→21:06)
[2019-03-30] MEDS: DIAZEPAM INJ 10 MG/2 ML DISP.SYRIN IV PRN ×2 (02:28→21:06)
[2019-03-30 04:14] LABS: HEMATOCRIT 31.1 % (37.9-51.0); HEMOGLOBIN 10.4 g/dL (13.5-17.0); MEAN CORPUSCULAR HEMOGLOBIN 34.5 pg (27.0-33.4); MEAN CORPUSCULAR HGB CONC 33.4 g/dL (32.0-36.0); MEAN CORPUSCULAR VOLUME 103 fl (80-97); PLATELET COUNT 338 10^3/uL (150-450); RED BLOOD COUNT 3.01 10^6/uL (4.35-5.55); RED CELL DISTRIBUTION WIDTH 18.7 % (11.5-14.0); WHITE BLOOD COUNT 13.5 10^3/uL (4.0-10.5)
[2019-03-30 04:21] LABS: ALKALINE PHOSPHATASE 81 U/L (38-126); ANION GAP 15 (5-19); ASPARTATE AMINO TRANSFERASE 78 U/L (17-59); BILIRUBIN,DIRECT 0.8 mg/dL (0.0-0.4); BILIRUBIN,TOTAL 1.6 mg/dL (0.2-1.3); BLOOD UREA NITROGEN 18 mg/dL (7-20); CALCIUM 8.8 mg/dL (8.4-10.2); CARBON DIOXIDE 20 mmol/L (22-30); CHLORIDE 112 mmol/L (98-107); GLUCOSE 113 mg/dL (75-110); PHOSPHORUS 3.6 mg/dL (2.5-4.5); POTASSIUM 3.9 mmol/L (3.6-5.0); TOTAL PROTEIN 6.1 g/dL (6.3-8.2)
[2019-03-30 04:55] LABS: ABSOLUTE LYMPHOCYTES# (MANUAL) 0.8 10^3/uL (0.5-4.7); ABSOLUTE MONOCYTES # (MANUAL) 1.1 10^3/uL (0.1-1.4); BASOPHILS % (MANUAL) 0 % (0-2); EOSINOPHILS % (MANUAL) 0 % (0-6); LYMPHOCYTES % (MANUAL) 4 % (13-45); MONOCYTES % (MANUAL) 8 % (3-13); SEGMENTED NEUTROPHILS % (MAN) 86 % (42-78); TOTAL CELLS COUNTED 100
[2019-03-30 04:57] LABS: ANISOCYTOSIS 1+; BURR CELLS SLIGHT; POIKILOCYTOSIS 1+; TEAR DROP CELLS 1+; TOXIC GRANULATION SLIGHT; TOXIC VACUOLATION PRESENT
[2019-03-30 04:58] LABS: PLATELET COMMENT ADEQUATE
[2019-03-30] MEDS: HEPARIN SOD (PORCINE) 5,000 UNIT/ML 1 ML VIAL SUBCUT SCH ×3 (06:03→21:07)
[2019-03-30] MEDS: POTASSI CL 40 MEQ/NS 1L 1,000 ML IV PRN (06:41)
--- NOTE | 2019-03-30 07:04 | EKG REPORT ---
SEVERITY:- ABNORMAL ECG - SINUS TACHYCARDIA VENTRICULAR PREMATURE COMPLEXES MINIMAL ST ELEVATION, INFERIOR LEADS BORDERLINE PROLONGED QT INTERVAL DEFECTIVE EKG, SEVERE BASELINE ARTEFACTS : Confirmed by: Wale Lemus MD 30-Mar-2019 07:04:26
[2019-03-30] MEDS: PANTOPRAZOLE SODIUM 40 MG VIAL IV SCH (09:58)
[2019-03-30] MEDS: CHOLECALCIFEROL (D3) 1,000 UNIT (25 MCG) TABLET PO SCH (09:59)
--- NOTE | 2019-03-30 11:07 | PDOC PROGRESS REPORT ---
Subjective Progress Note for:: 03/30/19 Subjective:: March 29, 2019-no complaints at this time. Patient with visible shakes not sure if this is beginning of withdrawal or from his tetany March 30, 2019-confused this a.m. Patient going through slight DTs. Receiving Ativan as needed Reason For Visit: ALCOHOL ABUSE, HYPOMAGNESIUM,HYPOCALCEMIA,HYPERTEN Physical Exam Vital Signs: Temp Pulse Resp BP Pulse Ox 99.7 F 110 H 33 H 135/90 H 96 03/30/19 08:00 03/30/19 10:00 03/30/19 10:00 03/30/19 10:00 03/30/19 10:00 Intake & Output 03/29/19 03/30/19 03/31/19 06:59 06:59 06:59 Intake Total 3324.2 2794 Output Total 1650 2655 350 Balance 1674.2 139 -350 Weight 92 kg 94 kg General appearance: PRESENT: no acute distress, well-developed, well-nourished Neck exam: ABSENT: carotid bruit, JVD, lymphadenopathy, thyromegaly Respiratory exam: PRESENT: clear to auscultation sidney. ABSENT: rales, rhonchi, wheezes Cardiovascular exam: PRESENT: RRR, tachycardia Pulses: PRESENT: +2 pedal pulses bilateral Vascular exam: PRESENT: normal capillary refill GI/Abdominal exam: PRESENT: normal bowel sounds, soft. ABSENT: distended, guarding, mass, organolmegaly, rebound, tenderness Extremities exam: PRESENT: calf tenderness, full ROM. ABSENT: clubbing, pedal edema Neurological exam: PRESENT: awake Psychiatric exam: PRESENT: anxious Skin exam: PRESENT: dry, intact, warm. ABSENT: cyanosis, rash Results Laboratory Results: 03/30/19 03:48 03/30/19 03:48 03/29/19 03/29/19 03/29/19 12:07 19:15 19:15 WBC RBC Hgb Hct MCV MCH MCHC RDW Plt Count Seg Neutrophils % Sodium Potassium 3.8 Chloride Carbon Dioxide Anion Gap BUN Creatinine Est GFR ( Amer) Glucose Calcium Ionized Calcium Pratibha 1.07 L 1.11 L Phosphorus 3.3 D Magnesium 1.7 Total Bilirubin AST Alkaline Phosphatase Total Protein Albumin 03/30/19 03/30/19 03/30/19 03:48 03:48 03:48 WBC 13.5 H RBC 3.01 L Hgb 10.4 L Hct 31.1 L MCV 103 H MCH 34.5 H MCHC 33.4 RDW 18.7 H Plt Count 338 Seg Neutrophils % Not Reportable Sodium 147.1 H Potassium 3.9 Chloride 112 H Carbon Dioxide 20 L Anion Gap 15 BUN 18 Creatinine 0.82 Est GFR ( Amer) > 60 Glucose 113 H Calcium 8.8 Ionized Calcium Pratibha 1.16 Phosphorus 3.6 Magnesium 1.5 L Total Bilirubin 1.6 H AST 78 H Alkaline Phosphatase 81 Total Protein 6.1 L Albumin 3.0 L 03/28/19 03/28/19 15:25 15:25 Creatine Kinase 948 H Troponin I < 0.012 Impressions: Chest X-Ray 03/28/19 17:12 IMPRESSION: Bibasilar airspace opacities, may be secondary to atelectasis or pneumonia. Assessment and Plan - Diagnosis (1) Alcohol abuse Is this a current diagnosis for this admission?: Yes Plan: Patient and his family state that he last had his normal consumption of alcohol 2 days ago, which is approximately 2/5 of gin per day. His states that this morning he just had a couple of drinks. He has been an alcoholic for many years and is been in rehab in the past. March 29, 2019-patient with visible shaking at this time. I have added Ativan 2 mg IV every 3 hours as needed. We will aggressively watch patient for any signs of DTs and treat aggressively. I also placed patient on banana bag daily. Patient unable to swallow at this time so we cannot give oral medications. March 30, 2019-patient receiving PRN Ativan at this time. He is in the beginning stages of DTs. We are treating him aggressively he continues with rally bag daily. Patient unable to swallow. Continue to follow (2) Hypocalcemia Is this a current diagnosis for this admission?: Yes Plan: Patient's calcium level in the ER is 5.5 and are normal range here is from 8.4- 10.2. Patient's albumin level is normal March 29, 2019-patient's calcium now7.7 after 10 runs of 1 g of calcium gluconate. Patient is now on calcium replacement protocol. I have added a vitamin D and a PTH to determine if these may be contributing factors to patient's hypocalcemia. We will continue to follow March 30, 2019-patient with low vitamin D most likely cause of his hypocalcemia. Unable to take oral replacement at this time. Once patient is awake and able to take oral we will give him oral vitamin D replacement.. (3) Hypomagnesemia Is this a current diagnosis for this admission?: Yes Plan: Patient's magnesium level is 0.4 with our normal range being 1.6-2.3 March 29, 2019-magnesium level normalized today. We will repeat magnesium level in a.m. March 30, 2019-magnesium 1.5 this a.m. Magnesium replacement per protocol repeat magnesium level in the a.m. (4) Tremor Is this a current diagnosis for this admission?: Yes Plan: She has what appears to be involuntary tremors of all 4 extremities, with the upper worse in the lower patient also has what appears to be carpal spasms of both hands March 29, 2019-patient does have involuntary jerking motions of all extremities. I suspect this is the start of alcohol withdrawal. We are going to aggressively monitor patient and aggressively treat if he does go to DTs. Calcium is almost corrected at this time so I doubt this is still tetany. We will continue to follow with serial calcium levels March 30, 2019-patient continues with slight tremor at this time. Patient is getting PRN Ativan for withdrawal. Calcium level has normalized. Continue to f ollow and treat aggressively for withdrawal (5) Hypertension Qualifiers: Hypertension type: essential hypertension Qualified Code(s): I10 - Essential (primary) hypertension Is this a current diagnosis for this admission?: Yes Plan: Patient is taking medication for hypertension Coreg 3.125 , Lasix 40 mg a day, Norvasc 5mg March 29, 2019-patient is stable with his blood pressure at this time. We will monitor his blood pressure if he starts having hypertension we will treat as appropriate. Patient is known alcoholic and may go to DTs so at that time hypertension will be signs of withdrawal. March 30, 2019-patient becoming hypotensive most likely from onset of DTs. Patient getting PRN Ativan as needed hydralazine. Continue to follow. (6) Hypokalemia Is this a current diagnosis for this admission?: Yes Plan: March 29, 2019-patient had a complete bit of potassium overnight. Potassium le prisca 3.0 at this time. Patient continues to get potassium runs I will add 40 mg of Potassium to normal saline to run at 150 mL/h as well. We will continue to monitor with serial potassium levels. March 30, 2019-hypokalemia has resolved at this time continue to follow daily CMP's. (7) Acute kidney injury Is this a current diagnosis for this admission?: Yes Plan: March 29, 2019-patient had a admission creatinine of 1.38 it is down to 0.99 this morning. We will continue to hydrate we will continue with daily renal panels. March 30, 2019-resolved. Hydration continues however have changed fluids to D5 one half normal saline at 125 mL/h. We will continue to follow daily renal panels. (8) Hypernatremia Is this a current diagnosis for this admission?: Yes Plan: 03/30/2019-patient with slight hyponatremia most likely from IV fluids. At this time I have changed his IV fluid from normal saline to D5 one half normal saline at 125 mL an hour. We will continue to follow with daily CMP's. (9) Hyperbilirubinemia Is this a current diagnosis for this admission?: Yes Plan: 03/30/2019-total bili 1.6 direct bili 0.8. Patient does have a mildly elevated AST we will continue to follow daily CMP's. - Time Time Spent with patient: 25-34 minutes - Inpatient Certification Based on my medical assessment, after consideration of the patient's comorbidities, presenting symptoms, or acuity I expect that the services needed warrant INPATIENT care.: Yes I certify that my determination is in accordance with my understanding of Medicare's requirements for reasonable and necessary INPATIENT services [42 CFR 412.3e].: Yes Medical Necessity: Other - IV fluids, DVT prophylaxis, banana bags
[2019-03-30] MEDS: DEXTROSE 5%-1/2 NORMAL SALINE 1,000 ML IV PRN (11:40)
[2019-03-30] MEDS: NORMAL SALINE 1000 ML 1,000 ML with THIAMINE HCL 100 MG, MVI, ADULT NO.1 WITH VIT K 10 ML IV SCH ×3 (17:25)
[2019-03-30] MEDS: MAGNESIUM SULFATE 1 GM/D5W 100 ML IV SCH ×2 (21:07→22:20)
[2019-03-30] MEDS: MONTELUKAST SODIUM 10 MG TABLET PO SCH (21:08)
[2019-03-31] MEDS: LORAZEPAM INJ 2 MG/1 ML VIAL IV PRN ×2 (00:58→02:48)
[2019-03-31] MEDS: METOPROLOL TARTRATE PF/INJ 5 MG/5 ML SDV IV SCH ×6 (01:00→21:19)
[2019-03-31] MEDS: DEXTROSE 5%-1/2 NORMAL SALINE 1,000 ML IV PRN (01:01)
[2019-03-31] MEDS: DIAZEPAM INJ 10 MG/2 ML DISP.SYRIN IV PRN (02:07)
[2019-03-31] MEDS ORDERED: FUROSEMIDE INJ/PF 20 MG/2 ML SDV IV ONE (03:00)
--- NOTE | 2019-03-31 03:48 | RADIOLOGY REPORT (SQ) ---
EXAM DESCRIPTION: XR CHEST 1 VIEW COMPLETED DATE/TME: 03/31/2019 00:00 CLINICAL HISTORY: 59 years, Male, respiratory distress COMPARISON: 03/28/2019 NUMBER OF VIEWS: One TECHNIQUE: 03/28/2019 LIMITATIONS: None. FINDINGS: There is stable elevation of the right hemidiaphragm. There is no focal consolidation. The heart size is stable. There is no pneumothorax or large pleural effusion. There is no acute fracture. IMPRESSION: No acute cardiopulmonary abnormality copyright 2010 [employer]- All Rights Reserved
[2019-03-31] MEDS: HEPARIN SOD (PORCINE) 5,000 UNIT/ML 1 ML VIAL SUBCUT SCH ×2 (05:12→15:08)
[2019-03-31 06:12] LABS: ABSOLUTE EOSINOPHILS # (AUTO) 0.1 10^3/uL (0.0-0.6); ABSOLUTE LYMPHOCYTES (AUTO) 0.6 10^3/uL (0.5-4.7); ABSOLUTE MONOCYTES (AUTO) 1.1 10^3/uL (0.1-1.4); ABSOLUTE NEUT (AUTO) 8.9 10^3/uL (1.7-8.2); BASOPHILS % (AUTO) 0.5 % (0-2); EOSINOPHILS % (AUTO) 0.5 % (0-6); HEMATOCRIT 32.7 % (37.9-51.0); HEMOGLOBIN 11.1 g/dL (13.5-17.0); LYMPHOCYTES % (AUTO) 5.2 % (13-45); MEAN CORPUSCULAR HEMOGLOBIN 35.2 pg (27.0-33.4); MEAN CORPUSCULAR VOLUME 104 fl (80-97); MONOCYTES % (AUTO) 10.7 % (3-13); PLATELET COUNT 404 10^3/uL (150-450); RED BLOOD COUNT 3.15 10^6/uL (4.35-5.55); RED CELL DISTRIBUTION WIDTH 18.6 % (11.5-14.0); SEGMENTED NEUTROPHILS % (AUTO) 83.1 % (42-78); TOTAL CELLS COUNTED % (AUTO) 100 %; WHITE BLOOD COUNT 10.7 10^3/uL (4.0-10.5)
[2019-03-31 06:31] LABS: ALBUMIN 3.1 g/dL (3.5-5.0); ALKALINE PHOSPHATASE 107 U/L (38-126); ANION GAP 11 (5-19); ASPARTATE AMINO TRANSFERASE 101 U/L (17-59); BILIRUBIN,DIRECT 0.9 mg/dL (0.0-0.4); BILIRUBIN,TOTAL 1.4 mg/dL (0.2-1.3); BLOOD UREA NITROGEN 15 mg/dL (7-20); CARBON DIOXIDE 24 mmol/L (22-30); CHLORIDE 116 mmol/L (98-107); GLUCOSE 119 mg/dL (75-110); PHOSPHORUS 3.9 mg/dL (2.5-4.5); POTASSIUM 3.7 mmol/L (3.6-5.0); TOTAL PROTEIN 6.6 g/dL (6.3-8.2)
--- NOTE | 2019-03-31 07:00 | EKG REPORT ---
SEVERITY:- ABNORMAL ECG - SINUS TACHYCARDIA MULTIFORM VENTRICULAR PREMATURE COMPLEXES NONSPECIFIC T ABNORMALITIES, INFERIOR LEADS BORDERLINE PROLONGED QT INTERVAL : Confirmed by: Wale Lemus MD 31-Mar-2019 06:58:51
[2019-03-31] MEDS: CHOLECALCIFEROL (D3) 1,000 UNIT (25 MCG) TABLET PO SCH (10:00)
[2019-03-31] MEDS: PANTOPRAZOLE SODIUM 40 MG VIAL IV SCH (10:51)
[2019-03-31] MEDS ORDERED: VANCOMYCIN HCL 0 MG in DEXTROSE 5%-WATER 250 ML IV NR (12:00)
[2019-03-31] MEDS: CEFTRIAXONE 2 GM/D5W RTU 2 GM/50 ML RTUPB IV SCH ×2 (12:40→21:50)
--- NOTE | 2019-03-31 13:02 | PDOC PROGRESS REPORT ---
Subjective Progress Note for:: 03/31/19 Subjective:: This is a 59 yr old -German male with a past medical history of chronic alcohol abuse and hypertension who was brought in due to confusion 5 days prior to admission. He was admitted for acute renal failure, severe hypokalemia and hypomagnesemia and treated for possible alcohol withdrawal started on CIWA protocol. Reviewed chart and ICU course. Appears patient has not shown significant improvement in terms of his mental status since admission. Upon encounter this morning, patient remains lethargic. He moans but remains nonverbal. He did get Ativan last night around 2:30 AM. There is minimal nuchal rigidity upon examination. Negative Brudzinski sign. He did grimace upon attempt to elicit a Kernig's sign. Reason For Visit: ALCOHOL ABUSE, HYPOMAGNESIUM,HYPOCALCEMIA,HYPERTEN Physical Exam Vital Signs: Temp Pulse Resp BP Pulse Ox 100.4 F 115 H 28 H 143/101 H 96 03/31/19 08:00 03/31/19 10:00 03/31/19 10:15 03/31/19 10:15 03/31/19 10:15 Intake & Output 03/30/19 03/31/19 04/01/19 06:59 06:59 06:59 Intake Total 2794 3453 Output Total 2655 3850 59258 Balance 139 -397 -86019 Weight 207 lb 3.752 oz 208 lb 8.917 oz General appearance: PRESENT: no acute distress, other - lethargic Eye exam: PRESENT: conjunctiva pink, EOMI, PERRLA. ABSENT: scleral icterus Mouth exam: PRESENT: moist, tongue midline Neck exam: ABSENT: carotid bruit, JVD, lymphadenopathy, thyromegaly Respiratory exam: PRESENT: rhonchi. ABSENT: rales, wheezes Cardiovascular exam: PRESENT: RRR. ABSENT: diastolic murmur, rubs, systolic murmur Pulses: PRESENT: normal dorsalis pedis pul GI/Abdominal exam: PRESENT: normal bowel sounds, soft. ABSENT: distended, guarding, mass, organolmegaly, rebound, tenderness Rectal exam: PRESENT: deferred Extremities exam: PRESENT: full ROM. ABSENT: calf tenderness, clubbing, pedal edema Neurological exam: PRESENT: altered, other - Minimal nuchal rigidity upon examination. Negative Brudzinski sign. He did grimace upon attempt to elicit a Kernig's sign.. ABSENT: oriented to person, oriented to place, oriented to time, oriented to situation Results Laboratory Results: 03/31/19 05:59 03/31/19 05:59 03/31/19 03/31/19 03/31/19 01:16 05:59 05:59 WBC 10.7 H RBC 3.15 L Hgb 11.1 L Hct 32.7 L MCV 104 H MCH 35.2 H MCHC 34.0 RDW 18.6 H Plt Count 404 Seg Neutrophils % 83.1 H Sodium 150.9 H Potassium 3.7 Chloride 116 H Carbon Dioxide 24 Anion Gap 11 BUN 15 Creatinine 0.80 Est GFR ( Amer) > 60 Glucose 119 H Calcium 9.0 Ionized Calcium Pratibha Phosphorus 3.9 Magnesium 1.9 Total Bilirubin 1.4 H AST 101 H Alkaline Phosphatase 107 Total Protein 6.6 Albumin 3.1 L 03/31/19 05:59 WBC RBC Hgb Hct MCV MCH MCHC RDW Plt Count Seg Neutrophils % Sodium Potassium Chloride Carbon Dioxide Anion Gap BUN Creatinine Est GFR ( Amer) Glucose Calcium Ionized Calcium Pratibha 1.11 L Phosphorus Magnesium Total Bilirubin AST Alkaline Phosphatase Total Protein Albumin 03/28/19 03/28/19 15:25 15:25 Creatine Kinase 948 H Troponin I < 0.012 Impressions: Chest X-Ray 03/31/19 00:00 IMPRESSION: No acute cardiopulmonary abnormality copyright 2010 [employer]- All Rights Reserved Assessment and Plan - Diagnosis (1) Acute encephalopathy Is this a current diagnosis for this admission?: Yes Plan: He was treated for possible DT. Appears patient has not shown significant improvement in terms of his mental status since admission. Upon encounter this morning, patient remains lethargic. He moans but remains nonverbal. He did get Ativan last night around 2:30 AM. There is minimal nuchal rigidity upon examination. Negative Brudzinski sign. He did grimace upon attempt to elicit a Kernig's sign. Etiology is multifactorial. Differentials include alcohol withdrawal, metabolic, medications and possibly infectious. His sodium today is 150 but previous Na levels is not severe enough to cause his encephaloapthy. Hold off on Ativan for now. With his leukocytosis, low grade fevers and equivocal meningeal signs, will consider LP if he continues to be lethargic despite being off benzos. Will order for a head CT as well. (2) Acute kidney injury Is this a current diagnosis for this admission?: Yes Plan: Resolved with IV fluids. (3) Hypernatremia Is this a current diagnosis for this admission?: Yes Plan: Continue D5 half saline. Will check a serum osm. (4) Hypokalemia Is this a current diagnosis for this admission?: Yes Plan: Repleted. (5) Hypomagnesemia Is this a current diagnosis for this admission?: Yes Plan: Repleted. (6) Alcohol abuse Is this a current diagnosis for this admission?: Yes - Time Time Spent with patient: 25-34 minutes
--- NOTE | 2019-03-31 14:25 | RADIOLOGY REPORT (SQ) ---
EXAM DESCRIPTION: CT HEAD WITHOUT COMPLETED DATE/TIME: 03/31/2019 2:13 pm REASON FOR STUDY: AMS COMPARISON: 05/18/2016 TECHNIQUE: Axial images acquired through the brain without intravenous contrast. Images reviewed wi th bone, brain and subdural windows. Additional sagittal and coronal reconstructions were generated. Images stored on PACS. All CT scanners at this facility use dose modulation, iterative reconstruction, and/or weight based d osing when appropriate to reduce radiation dose to as low as reasonably achievable (ALARA). [facility]: Dose Right [facility]: CareDose [facility]: Dose Right [facility]: Teradose 4D [facility]: [employer] RADIATION DOSE: CT Rad equipment meets quality standard of care and radiation dose reduction techniq ues were employed. CTDIvol: 48.6 mGy. DLP: 954 mGy-cm. mGy. LIMITATIONS: None. FINDINGS: VENTRICLES: Normal size and contour. CEREBRUM: No masses. No hemorrhage. No midline shift. No evidence for acute infarction. Normal gra y/white matter differentiation. No areas of low density in the white matter. CEREBELLUM: No masses. No hemorrhage. No alteration of density. No evidence for acute infarction. EXTRAAXIAL SPACES: No fluid collections. No masses. ORBITS AND GLOBE: No intra- or extraconal masses. Normal contour of globe without masses. CALVARIUM: No fracture. PARANASAL SINUSES: No fluid or mucosal thickening. SOFT TISSUES: No mass or hematoma. OTHER: No other significant finding. IMPRESSION: No acute intracranial pathology. EVIDENCE OF ACUTE STROKE: NO. COMMENT: Quality ID # [id number]: Final reports with documentation of one or more dose reduction techniques (e.g., Automated exposure control, adjustment of the mA and/or kV according to patient size, use of iterative reconstruction technique) TECHNICAL DOCUMENTATION: JOB ID: [id number] [employer]- All Rights Reserved Reading location - IP/workstation name: [email or web address]
[2019-03-31] MEDS: CALCIUM GLUCONATE 1000 MG/10 ML INJ IV SCH ×2 (15:24→17:12)
[2019-03-31] MEDS: VANCOMYCIN HCL 1,500 MG in DEXTROSE 5%-WATER 250 ML IV SCH ×2 (15:43→21:51)
[2019-03-31] MEDS ORDERED: CALCIUM GLUCONATE 1000 MG/10 ML INJ IV ONE (17:09)
[2019-03-31] MEDS ORDERED: POTASSIUM CHLORIDE IV PRN ×2 (17:43)
[2019-03-31] MEDS ORDERED: WATER IV PRN ×2 (17:43)
[2019-03-31] MEDS ORDERED: DEXTROSE 5% IV PRN ×2 (17:43)
[2019-03-31] MEDS: NORMAL SALINE 1000 ML 1,000 ML with THIAMINE HCL 100 MG, MVI, ADULT NO.1 WITH VIT K 10 ML IV SCH ×3 (19:04)
--- NOTE | 2019-03-31 19:43 | RADIOLOGY REPORT (SQ) ---
EXAM DESCRIPTION: U/S ABDOMEN LIMITED W/O DOP COMPLETED DATE/TIME: 03/31/2019 7:32 pm REASON FOR STUDY: RUQ US, hyperbilirubinemia, AMS COMPARISON: 02/22/2015 TECHNIQUE: Dynamic and static grayscale images acquired of the abdomen and recorded on PACS. Additio nal selected color Doppler and spectral images recorded. LIMITATIONS: Limited by patient's inability to the lie supine. Portable exam. FINDINGS: PANCREAS: Poorly seen. LIVER: No masses. Echotexture normal. LIVER VASCULATURE: Poorly seen. GALLBLADDER: Not seen. ULTRASOUND-DETECTED LORENZO'S SIGN: Negative. INTRAHEPATIC DUCTS AND COMMON DUCT: Common bile duct is not seen. INFERIOR VENA CAVA: Not imaged. AORTA: No aneurysm. RIGHT KIDNEY: Normal size, 8.9 cm. Normal echogenicity. No solid or suspicious masses. No hydronephr osis. No calcifications. PERITONEAL AND RIGHT PLEURAL SPACE: No ascites or effusions. OTHER: No other significant findings. IMPRESSION: Very limited study. Findings as described. TECHNICAL DOCUMENTATION: JOB ID: [id number] [employer]- All Rights Reserved Reading location - IP/workstation name: [email or web address]
[2019-03-31] MEDS ORDERED: THIAMINE HCL 100 MG in NORMAL SALINE 50 ML IV SCH (20:00)
[2019-03-31] MEDS: MONTELUKAST SODIUM 10 MG TABLET PO SCH (21:20)
[2019-04-01] MEDS: METOPROLOL TARTRATE PF/INJ 5 MG/5 ML SDV IV SCH ×4 (01:51→14:21)
[2019-04-01 03:37] LABS: ANION GAP 10 (5-19); BLOOD UREA NITROGEN 15 mg/dL (7-20); CALCIUM 8.8 mg/dL (8.4-10.2); CARBON DIOXIDE 25 mmol/L (22-30); CHLORIDE 116 mmol/L (98-107); GLUCOSE 125 mg/dL (75-110); POTASSIUM 3.4 mmol/L (3.6-5.0)
[2019-04-01] MEDS: VANCOMYCIN HCL 1,500 MG in DEXTROSE 5%-WATER 250 ML IV SCH (05:52)
[2019-04-01 07:45] LABS: VITAMIN B1 (THIAMINE) 201.8 nmol/L (66.5-200.0)
[2019-04-01] MEDS: POTASSIUM CHLORIDE 20 MEQ/50 ML RTU IV SCH ×2 (08:20→12:08)
[2019-04-01] MEDS: MAGNESIUM SULFATE 1 GM/D5W 100 ML IV SCH ×2 (08:24→09:59)
--- NOTE | 2019-04-01 09:02 | RADIOLOGY REPORT (SQ) ---
EXAM DESCRIPTION: CHEST SINGLE VIEW COMPLETED DATE/TIME: 04/01/2019 8:50 am REASON FOR STUDY: rales COMPARISON: 03/11/2019 NUMBER OF VIEWS: One view. TECHNIQUE: Single frontal radiographic image of the chest acquired. LIMITATIONS: None. FINDINGS: LUNGS AND PLEURA: Stable appearance. MEDIASTINUM AND HILAR STRUCTURES: Stable heart size and mediastinal structures. HEART AND VASCULAR STRUCTURES: Stable appearance. BONES: No acute findings. HARDWARE: None in the chest. OTHER: No other significant finding. IMPRESSION: STABLE APPEARANCE OF THE CHEST. TECHNICAL DOCUMENTATION: JOB ID: [id number] [employer]- All Rights Reserved Reading location - IP/workstation name: [email or web address]
[2019-04-01] MEDS ORDERED: POTASSIUM CHLORIDE 20 MEQ PACKET PO ONE (09:30)
[2019-04-01] MEDS: PANTOPRAZOLE SODIUM 40 MG VIAL IV SCH (10:00)
[2019-04-01] MEDS: CHOLECALCIFEROL (D3) 1,000 UNIT (25 MCG) TABLET PO SCH (10:04)
[2019-04-01 10:41] LABS: ABSOLUTE EOSINOPHILS # (AUTO) 0.2 10^3/uL (0.0-0.6); ABSOLUTE LYMPHOCYTES (AUTO) 0.7 10^3/uL (0.5-4.7); BASOPHILS % (AUTO) 0.3 % (0-2); EOSINOPHILS % (AUTO) 1.2 % (0-6); HEMATOCRIT 33.2 % (37.9-51.0); HEMOGLOBIN 11.1 g/dL (13.5-17.0); LYMPHOCYTES % (AUTO) 5.8 % (13-45); MEAN CORPUSCULAR HEMOGLOBIN 34.7 pg (27.0-33.4); MEAN CORPUSCULAR HGB CONC 33.4 g/dL (32.0-36.0); MEAN CORPUSCULAR VOLUME 104 fl (80-97); RED CELL DISTRIBUTION WIDTH 18.9 % (11.5-14.0); SEGMENTED NEUTROPHILS % (AUTO) 84.7 % (42-78); TOTAL CELLS COUNTED % (AUTO) 100 %; WHITE BLOOD COUNT 12.9 10^3/uL (4.0-10.5)
[2019-04-01 11:10] LABS: PLATELET COUNT 454 10^3/uL (150-450)
[2019-04-01] MEDS: DEXTROSE 5%-WATER 1000 ML 1,000 ML IV PRN (12:05)
[2019-04-01] MEDS: ACETAMINOPHEN 325 MG TABLET PO PRN ×2 (14:22→19:53)
--- NOTE | 2019-04-01 14:45 | PDOC PROGRESS REPORT ---
Subjective Progress Note for:: 04/01/19 Subjective:: This is a 59 yr old -Somali male with a past medical history of chronic alcohol abuse and hypertension who was brought in due to confusion 5 days prior to admission. He was admitted for acute renal failure, severe hypokalemia and hypomagnesemia and treated for possible alcohol withdrawal started on CIWA protocol. 03/31: Reviewed chart and ICU course. Appears patient has not shown significant improvement in terms of his mental status since admission. Upon encounter this morning, patient remains lethargic. He moans but remains nonverbal. He did get Ativan last night around 2:30 AM. There is minimal nuchal rigidity upon examination. Negative Brudzinski sign. He did grimace upon attempt to elicit a Kernig's sign. 04/01: No acute event overnight. Patient's mentation significantly improved after holding off on benzodiazepines and antipsychotics. This morning, he is fully awake and coherent. He is oriented x3. There is no nuchal rigidity, Ke rnig's or Brudzinski's signs on reassessment. No fever or chills. Reason For Visit: ALCOHOL ABUSE, HYPOMAGNESIUM,HYPOCALCEMIA,HYPERTEN Physical Exam Vital Signs: Temp Pulse Resp BP Pulse Ox 98.4 F 99 28 H 134/103 H 97 04/01/19 12:00 04/01/19 12:00 04/01/19 12:00 04/01/19 12:00 04/01/19 12:00 Intake & Output 03/31/19 04/01/19 04/02/19 06:59 06:59 06:59 Intake Total 3453 708 709 Output Total 4180 39019 380 Balance -397 -44752 329 Weight 208 lb 8.917 oz 197 lb 12.074 oz General appearance: PRESENT: no acute distress, well-developed, well-nourished Head exam: PRESENT: atraumatic, normocephalic Eye exam: PRESENT: conjunctiva pink, EOMI, PERRLA. ABSENT: scleral icterus Ear exam: PRESENT: normal external ear exam Mouth exam: PRESENT: moist, tongue midline Neck exam: ABSENT: carotid bruit, JVD, lymphadenopathy, thyromegaly Respiratory exam: PRESENT: clear to auscultation sidney. ABSENT: rales, rhonchi, wheezes Cardiovascular exam: PRESENT: RRR. ABSENT: diastolic murmur, rubs, systolic murmur Pulses: PRESENT: normal dorsalis pedis pul GI/Abdominal exam: PRESENT: normal bowel sounds, soft. ABSENT: distended, guarding, mass, organolmegaly, rebound, tenderness Rectal exam: PRESENT: deferred Extremities exam: PRESENT: full ROM. ABSENT: calf tenderness, clubbing, pedal edema Neurological exam: PRESENT: alert, awake, oriented to person, oriented to place, oriented to time, oriented to situation, CN II-XII grossly intact. ABSENT: motor sensory deficit Results Laboratory Results: 04/01/19 10:30 03/29/19 04/01/19 04/01/19 08:45 03:00 03:00 WBC RBC Hgb Hct MCV MCH MCHC RDW Plt Count Seg Neutrophils % Sodium 151.4 H Potassium 3.4 L Chloride 116 H Carbon Dioxide 25 Anion Gap 10 BUN 15 Creatinine 0.79 Est GFR ( Amer) > 60 Est GFR (Non-Af Amer) Glucose 125 H Calcium 8.8 Ionized Calcium Pratibha 1.17 Magnesium 1.5 L Vitamin B1 201.8 H 04/01/19 04/01/19 10:30 10:30 WBC 12.9 H RBC 3.20 L Hgb 11.1 L Hct 33.2 L MCV 104 H MCH 34.7 H MCHC 33.4 RDW 18.9 H Plt Count 454 H Seg Neutrophils % 84.7 H Sodium Cancelled Potassium Cancelled Chloride Cancelled Carbon Dioxide Cancelled Anion Gap Cancelled BUN Cancelled Creatinine Cancelled Est GFR ( Amer) Cancelled Est GFR (Non-Af Amer) Cancelled Glucose Cancelled Calcium Cancelled Ionized Calcium Pratibha Magnesium Vitamin B1 03/28/19 03/28/19 15:25 15:25 Creatine Kinase 948 H Troponin I < 0.012 Impressions: Head CT 03/31/19 00:00 IMPRESSION: No acute intracranial pathology. EVIDENCE OF ACUTE STROKE: NO. Abdomen Ultrasound 03/31/19 12:11 IMPRESSION: Very limited study. Findings as described. Chest X-Ray 04/01/19 08:27 IMPRESSION: STABLE APPEARANCE OF THE CHEST. Assessment and Plan - Diagnosis (1) Acute encephalopathy Is this a current diagnosis for this admission?: Yes Plan: 03/31: He was treated for possible DT. Appears patient has not shown significant improvement in terms of his mental status since admission. Upon encounter this morning, patient remains lethargic. He moans but remains nonverbal. He did get Ativan last night around 2:30 AM. There is minimal nuchal rigidity upon examination. Negative Brudzinski sign. He did grimace upon attempt to elicit a Kernig's sign. Etiology is multifactorial. Differentials include alcohol withdrawal, metabolic, medications and possibly infectious. His sodium today is 150 but previous Na levels is not severe enough to cause his encephaloapthy. Hold off on Ativan for now. With his leukocytosis, low grade fevers and equivocal meningeal signs, will consider LP if he continues to be lethargic despite being off benzos. Will order for a head CT as well. 04/01: Resolving. Patient's mentation significantly improved after holding off on benzodiazepines and antipsychotics. Acute encephalopathy was likely from a combination of alcohol withdrawal, EMILIO and medication effect. (2) Acute kidney injury Is this a current diagnosis for this admission?: Yes Plan: Resolved with IV fluids. (3) Hypernatremia Is this a current diagnosis for this admission?: Yes Plan: 03/31: Continue D5 half saline. Will check a serum osm. 04/01: Switch to D5W. (4) Hypokalemia Is this a current diagnosis for this admission?: Yes Plan: Repleted. (5) Hypomagnesemia Is this a current diagnosis for this admission?: Yes Plan: Repleted. (6) Alcohol abuse Is this a current diagnosis for this admission?: Yes Plan: Counseled on alcohol cessation.
[2019-04-01 14:59] LABS: VANCOMYCIN,TROUGH 19.4 ug/mL (5.0-20.0)
[2019-04-01 15:12] LABS: ANION GAP 10 (5-19); BLOOD UREA NITROGEN 15 mg/dL (7-20); CARBON DIOXIDE 25 mmol/L (22-30); CHLORIDE 114 mmol/L (98-107); GLUCOSE 149 mg/dL (75-110); POTASSIUM 3.9 mmol/L (3.6-5.0)
[2019-04-01] MEDS: CARVEDILOL 3.125 MG TABLET PO SCH ×2 (15:35→22:12)
[2019-04-01] MEDS: TRAZODONE HCL 50 MG TABLET PO SCH (22:12)
[2019-04-01] MEDS: MONTELUKAST SODIUM 10 MG TABLET PO SCH (22:12)
[2019-04-02 04:46] LABS: ANION GAP 10 (5-19); BLOOD UREA NITROGEN 13 mg/dL (7-20); CALCIUM 8.6 mg/dL (8.4-10.2); CARBON DIOXIDE 24 mmol/L (22-30); CHLORIDE 111 mmol/L (98-107); GLUCOSE 112 mg/dL (75-110); POTASSIUM 3.4 mmol/L (3.6-5.0)
[2019-04-02] MEDS: PANTOPRAZOLE SODIUM 40 MG TABLET.DR PO SCH (06:51)
[2019-04-02] MEDS ORDERED: POTASSIUM CHLORIDE 10 MEQ CAPSULE.ER PO ONE (07:00)
[2019-04-02] MEDS: DEXTROSE 5%-WATER 1000 ML 1,000 ML IV PRN ×2 (08:06→21:36)
[2019-04-02] MEDS ORDERED: PANTOPRAZOLE SODIUM 40 MG TABLET.DR PO ONE (08:30)
[2019-04-02] MEDS ORDERED: MAGNESIUM SULFATE/D5W 0 GM/0 ML RTUPB IV ONE (08:34)
[2019-04-02] MEDS: CHOLECALCIFEROL (D3) 1,000 UNIT (25 MCG) TABLET PO SCH (11:12)
[2019-04-02] MEDS: THIAMINE HCL 100 MG TABLET PO SCH (11:12)
[2019-04-02] MEDS: CARVEDILOL 3.125 MG TABLET PO SCH ×2 (11:12→21:35)
--- NOTE | 2019-04-02 14:34 | PDOC PROGRESS REPORT ---
Subjective Progress Note for:: 04/02/19 Subjective:: This is a 59 yr old -Mong[place] male with a past medical history of chronic alcohol abuse and hypertension who was brought in due to confusion 5 days prior to admission. He was admitted for acute renal failure, severe hypokalemia and hypomagnesemia and treated for possible alcohol withdrawal started on CIWA protocol. 03/31: Reviewed chart and ICU course. Appears patient has not shown significant improvement in terms of his mental status since admission. Upon encounter this morning, patient remains lethargic. He moans but remains nonverbal. He did get Ativan last night around 2:30 AM. There is minimal nuchal rigidity upon examination. Negative Brudzinski sign. He did grimace upon attempt to elicit a Kernig's sign. 04/01: Patient's mentation significantly improved after holding off on benzodiazepines and antipsychotics. This morning, he is fully awake and coherent. He is oriented x3. There is no nuchal rigidity, Kernig's or Brudzinski's signs on reassessment. No fever or chills. 04/02: No acute event overnight. His mental status continue to improve. He is very conversant and well oriented this morning. Denies any acute complaints. Reason For Visit: ALCOHOL ABUSE, HYPOMAGNESIUM,HYPOCALCEMIA,HYPERTEN Physical Exam Vital Signs: Temp Pulse Resp BP Pulse Ox 99.0 F 110 H 22 H 140/109 H 99 04/02/19 12:00 04/02/19 12:00 04/02/19 14:01 04/02/19 14:01 04/02/19 14:01 Intake & Output 04/01/19 04/02/19 04/03/19 06:59 06:59 06:59 Intake Total 708 1459 1000 Output Total 47461 1070 250 Balance -69445 389 750 Weight 197 lb 12.074 oz 203 lb 14.841 oz General appearance: PRESENT: no acute distress, well-developed, well-nourished Head exam: PRESENT: atraumatic, normocephalic Eye exam: PRESENT: conjunctiva pink, EOMI, PERRLA. ABSENT: scleral icterus Ear exam: PRESENT: normal external ear exam Mouth exam: PRESENT: moist, tongue midline Neck exam: ABSENT: carotid bruit, JVD, lymphadenopathy, thyromegaly Respiratory exam: PRESENT: clear to auscultation sidney. ABSENT: rales, rhonchi, wheezes Cardiovascular exam: PRESENT: RRR. ABSENT: diastolic murmur, rubs, systolic murmur Pulses: PRESENT: normal dorsalis pedis pul GI/Abdominal exam: PRESENT: normal bowel sounds, soft. ABSENT: distended, guarding, mass, organolmegaly, rebound, tenderness Rectal exam: PRESENT: deferred Neurological exam: PRESENT: alert, awake, oriented to person, oriented to place, oriented to time, CN II-XII grossly intact. ABSENT: motor sensory deficit Results Laboratory Results: 04/01/19 10:30 04/02/19 03:53 04/01/19 04/02/19 04/02/19 13:50 03:53 03:53 Sodium 148.5 H 145.4 H Potassium 3.9 3.4 L Chloride 114 H 111 H Carbon Dioxide 25 24 Anion Gap 10 10 BUN 15 13 Creatinine 0.80 0.66 Est GFR ( Amer) > 60 > 60 Glucose 149 H 112 H Calcium 9.0 8.6 Ionized Calcium Pratibha 1.16 Magnesium 1.7 03/28/19 03/28/19 15:25 15:25 Creatine Kinase 948 H Troponin I < 0.012 Impressions: Head CT 03/31/19 00:00 IMPRESSION: No acute intracranial pathology. EVIDENCE OF ACUTE STROKE: NO. Abdomen Ultrasound 03/31/19 12:11 IMPRESSION: Very limited study. Findings as described. Chest X-Ray 04/01/19 08:27 IMPRESSION: STABLE APPEARANCE OF THE CHEST. Assessment and Plan - Diagnosis (1) Acute encephalopathy Is this a current diagnosis for this admission?: Yes Plan: 03/31: He was treated for possible DT. Appears patient has not shown significant improvement in terms of his mental status since admission. Upon encounter this morning, patient remains lethargic. He moans but remains nonverbal. He did get Ativan last night around 2:30 AM. There is minimal nuchal rigidity upon e xamination. Negative Brudzinski sign. He did grimace upon attempt to elicit a Kernig's sign. Etiology is multifactorial. Differentials include alcohol withdrawal, metabolic, medications and possibly infectious. His sodium today is 150 but previous Na levels is not severe enough to cause his encephaloapthy. Hold off on Ativan for now. With his leukocytosis, low grade fevers and equivocal meningeal signs, will consider LP if he continues to be lethargic despite being off benzos. Will order for a head CT as well. 04/01: Resolving. Patient's mentation significantly improved after holding off on benzodiazepines and antipsychotics. Acute encephalopathy was likely from a combination of alcohol withdrawal, EMILIO and medication effect. 04/02: Resolved. (2) Acute kidney injury Is this a current diagnosis for this admission?: Yes Plan: Resolved with IV fluids. (3) Hypernatremia Is this a current diagnosis for this admission?: Yes Plan: 03/31: Continue D5 half saline. Will check a serum osm. 04/01: Switch to D5W. (4) Hypokalemia Is this a current diagnosis for this admission?: Yes Plan: Repleted. (5) Hypomagnesemia Is this a current diagnosis for this admission?: Yes Plan: Repleted. (6) Alcohol abuse Is this a current diagnosis for this admission?: Yes Plan: Counseled on alcohol cessation. - Time Time Spent with patient: 25-34 minutes
[2019-04-02] MEDS: ACETAMINOPHEN 325 MG TABLET PO PRN (21:35)
[2019-04-02] MEDS: MONTELUKAST SODIUM 10 MG TABLET PO SCH (21:35)
[2019-04-02] MEDS: TRAZODONE HCL 50 MG TABLET PO SCH (21:35)
[2019-04-03] MEDS: PANTOPRAZOLE SODIUM 40 MG TABLET.DR PO SCH (05:25)
[2019-04-03] MEDS: CHOLECALCIFEROL (D3) 1,000 UNIT (25 MCG) TABLET PO SCH (10:24)
[2019-04-03] MEDS: CARVEDILOL 3.125 MG TABLET PO SCH (10:24)
[2019-04-03] MEDS: THIAMINE HCL 100 MG TABLET PO SCH (10:24)
[2019-04-03] MEDS: DEXTROSE 5%-WATER 1000 ML 1,000 ML IV PRN (12:41)
[2019-04-03] MEDS ORDERED: POTASSIUM CHLORIDE 10 MEQ CAPSULE.ER PO ONE ×2 (12:43→16:00)
[2019-04-03 16:52] VITALS: BP 136/101
--- NOTE | 2019-04-04 17:19 | PDOC DISCHARGE SUMMARY ---
General - Admit/Disc Date/PCP Admission Date/Primary Care Provider: 03/28/19 16:36 Discharge Date: 04/03/19 - Discharge Diagnosis (1) Acute encephalopathy Is this a current diagnosis for this admission?: Yes (2) Acute kidney injury Is this a current diagnosis for this admission?: Yes (3) Hypernatremia Is this a current diagnosis for this admission?: Yes (4) Hypokalemia Is this a current diagnosis for this admission?: Yes (5) Hypomagnesemia Is this a current diagnosis for this admission?: Yes (6) Alcohol abuse Is this a current diagnosis for this admission?: Yes - Additional Information Resuscitation Status: Full Code Discharge Diet: Regular Prescriptions: Potassium Chloride [Klor-Con 10 Meq Capsule ER] 20 meq PO BID #20 cap Home Medications: Carvedilol [Coreg 3.125 mg Tablet] 3.125 mg PO Q12 03/29/19 Doxepin HCl [Sinequan 25 mg Capsule] 25 mg PO DAILY 03/29/19 Furosemide [Lasix 40 mg Tablet] 40 mg PO DAILY 03/29/19 Montelukast Sodium [Singulair 10 mg Tablet] 10 mg PO QHS 03/29/19 Tizanidine HCl [Zanaflex 4 mg Tablet] 4 mg PO QHS 03/29/19 Trazodone HCl [Desyrel 50 mg Tablet] 50 mg PO QHS 03/29/19 Potassium Chloride [Klor-Con 10 Meq Capsule ER] 20 meq PO BID #20 cap 04/03/19 History of Present Illness History of Present Illness: Admitting hospitalist's H&P: Mr. Arriola is a 59-year-old black male who comes in with altered mental status, confusion 5 days. Cording to the the patient charted having these problems on Saturday, Saturday he went to his primary care doctor and had lab work drawn. On Saturday his primary care provider called and said that he need to start taking potassium that his potassium was low into the medications I have reviewed he was 20 mEq daily. He states that in the last day or 2 his confusion is gotten worse, also he started having tremors and shaking all over. Cording to the and the daughter this in the room he is never had this type of behavior before. Patient has a long history of alcohol abuse. The patient is able to answer me and states that he drinks 2 fifths of Gin gin per day, and has done so for a number of years. Approximately 1 year ago the patient was 2 months then for 2 months when he got out of rehab he was sober. After that however he started d rinking heavily again. Hospital Course Hospital Course: This is a 59 yr old -[place] male with a past medical history of chronic alcohol abuse and hypertension who was brought in due to confusion 5 days prior to admission. He was admitted for acute renal failure, severe hypokalemia and hypomagnesemia and treated for possible alcohol withdrawal started on CIWA protocol. He was also treated for hypernatremia. He returned to his baseline. He was counseled in length about alcohol cessation. His hypokalemia and hypomagnesemia resolved. His EMILIO also resolved. Physical Exam Vital Signs: Temp Pulse Resp BP Pulse Ox 97.9 F 107 H 18 112/88 H 100 04/03/19 16:21 04/03/19 16:21 04/03/19 16:21 04/03/19 16:21 04/03/19 16:21 Intake & Output 04/02/19 04/03/19 04/04/19 06:59 06:59 06:59 Intake Total 1459 2519 994 Output Total 1070 275 Balance 389 2244 994 Weight 203 lb 14.841 oz 209 lb 7.026 oz General appearance: PRESENT: no acute distress, well-developed, well-nourished Head exam: PRESENT: atraumatic, normocephalic Eye exam: PRESENT: conjunctiva pink, EOMI, PERRLA. ABSENT: scleral icterus Ear exam: PRESENT: normal external ear exam Mouth exam: PRESENT: moist, tongue midline Neck exam: ABSENT: carotid bruit, JVD, lymphadenopathy, thyromegaly Respiratory exam: PRESENT: clear to auscultation sidney. ABSENT: rales, rhonchi, wheezes Cardiovascular exam: PRESENT: RRR. ABSENT: diastolic murmur, rubs, systolic murmur Pulses: PRESENT: normal dorsalis pedis pul GI/Abdominal exam: PRESENT: normal bowel sounds, soft. ABSENT: distended, guarding, mass, organolmegaly, rebound, tenderness Rectal exam: PRESENT: deferred Neurological exam: PRESENT: alert, awake, oriented to person, oriented to place, oriented to time, oriented to situation, CN II-XII grossly intact. ABSENT: motor sensory deficit Results Laboratory Results: 04/01/19 10:30 04/03/19 10:10 04/03/19 04/03/19 04/03/19 03:50 05:36 10:10 Potassium 3.4 L Ionized Calcium Pratibha Cancelled 1.11 L 03/28/19 03/28/19 15:25 15:25 Creatine Kinase 948 H Troponin I < 0.012 Impressions: Head CT 03/31/19 00:00 IMPRESSION: No acute intracranial pathology. EVIDENCE OF ACUTE STROKE: NO. Abdomen Ultrasound 03/31/19 12:11 IMPRESSION: Very limited study. Findings as described. Chest X-Ray 04/01/19 08:27 IMPRESSION: STABLE APPEARANCE OF THE CHEST. Qualifiers - * PATIENT BEING DISCHARGED WITH ANY OF THE FOLLOWING DIAGNOSIS: No Acute Heart Failure - Is this a Heart Failure Patient?: No LVEF < 40%?: No- if no continue to question #3 3. Anticoagulant therapy for permanect/persistent/paraoxysmal Afib or Aflutter: N/A
== END 2019-04-03 16:45 | disposition home health service (06) | DRG 897 ==
LOC: ER 14:35 → EH 16:36 → ICU 20:18 → 5 04-02 19:46
PROVIDERS: ADMIT Hospitalist; ATTEND Hospitalist
PROC: HZ2ZZZZ Detoxification Services for Substance Abuse Treatment (ICD-10-PCS; principal; 2019-03-29)
DX: F10.231 Alcohol dependence with withdrawal delirium (principal); G93.40 Encephalopathy, unspecified; N17.9 Acute kidney failure, unspecified; E87.0 Hyperosmolality and hypernatremia; I42.9 Cardiomyopathy, unspecified; I11.0 Hypertensive heart disease with heart failure; I50.9 Heart failure, unspecified; E83.42 Hypomagnesemia; E87.6 Hypokalemia; J44.9 Chronic obstructive pulmonary disease, unspecified; M19.90 Unspecified osteoarthritis, unspecified site; F43.10 Post-traumatic stress disorder, unspecified; F17.200 Nicotine dependence, unspecified, uncomplicated; Z82.49 Family history of ischemic heart disease and other diseases of the circulatory system; Z71.41 Alcohol abuse counseling and surveillance of alcoholic
CPT/HCPCS: 36415; 70450; 71045; 76705; 80048; 80053; 80202; 80307; 81001; 82040; 82140; 82150; 82306; 82330; 82550; 82746; 82803; 82962; 83690; 83735; 83921; 83930; 83970; 84100; 84132; 84425; 84443; 84484; 85025; 85610; 85730; 87040; 87493; 93005; 93010; 96365; 96375; 99291; J0360; J0610; J0696; J1644; J1940; J2060; J3360; J3370; J3411; J3475; J3480; J3490; J7030; J7050; J7060; S0164

== ENCOUNTER 2019-06-27 04:29 | Inpatient (IN) | payer OTHER ==
--- NOTE | 2019-06-27 05:17 | ER Document Report ---
ED General - General Mode of Arrival: Medic Information source: Emergency Med Personnel TRAVEL OUTSIDE OF THE [place] IN LAST 30 DAYS: No - Related Data Home Medications: pt states he does not know his meds or doses. <CHELSEA CONNORS IV - Last Filed: 06/27/19 06:06> <AIDEN GALLARDO - Last Filed: 06/27/19 08:45> - General Chief Complaint: Altered Mental Status Stated Complaint: UNRESPONSIVE Time Seen by Provider: 06/27/19 05:04 - HPI Notes: Patient is a 59-year-old male who presents via rescue after having a reported episode of seizure activity at his home. No family member is present with the patient at the time of initial evaluation by this MD. Patient states he does not remember what happened or why he is in the hospital. Last thing he remembers is just sitting at home and then after that he remembers being in the back of the ambulance but he does not remember losing consciousness. EMS reported that the patient appeared to be postictal upon their arrival, had some confusion but by the time he arrived to the ED he was able to move himself off the EMS stretcher onto the bed. Review of the medical record shows that the patient has a history of alcohol abuse, acute encephalopathy, hyponatremia, acute kidney injury, hypokalemia. (CHELSEA CONNORS IV) - Related Data Allergies/Adverse Reactions: No Known Allergies Allergy (Verified 12/11/16 05:01) Past Medical History - General Information source: Patient, Emergency Med Personnel - Social History Smoking Status: Former Smoker Chew tobacco use (# tins/day): No Frequency of alcohol use: Heavy Drug Abuse: None Family History: Hypertension, Other - Mom age 74 Alzheimer's Patient has suicidal ideation: No Patient has homicidal ideation: No - Past Medical History Cardiac Medical History: Reports: Hx Congestive Heart Failure - Cardiomyopathy, Hx Hypertension Denies: Hx Coronary Artery Disease, Hx Heart Attack Pulmonary Medical History: Reports: Hx COPD Denies: Hx Asthma, Hx Bronchitis, Hx Pneumonia Neurological Medical History: Reports: Hx Seizures - Secondary to alcohol. D enies: Hx Cerebrovascular Accident Renal/ Medical History: Denies: Hx Peritoneal Dialysis Musculoskeletal Medical History: Reports Hx Arthritis Psychiatric Medical History: Reports: Hx Post Traumatic Stress Disorder Denies: Hx Depression Past Surgical History: Reports: Hx Orthopedic Surgery - neck - Immunizations Hx Diphtheria, Pertussis, Tetanus Vaccination: No <CHELSEA CONNORS IV - Last Filed: 06/27/19 06:06> Review of Systems - Review of Systems Constitutional: No symptoms reported EENT: No symptoms reported Cardiovascular: No symptoms reported Respiratory: No symptoms reported Gastrointestinal: No symptoms reported Genitourinary: No symptoms reported Male Genitourinary: No symptoms reported Musculoskeletal: No symptoms reported Skin: No symptoms reported Hematologic/Lymphatic: No symptoms reported Neurological/Psychological: Other - Reported seizure activity, altered mental status -: Yes All other systems reviewed and negative <CHELSEA CONNORS IV - Last Filed: 06/27/19 06:06> Physical Exam <CHELSEA CONNORS IV - Last Filed: 06/27/19 06:06> - Vital signs Vitals: Resp Pulse Ox 25 H 93 06/27/19 04:32 06/27/19 04:32 - Notes Notes: PHYSICAL EXAMINATION: GENERAL: Well-appearing, well-nourished and in no acute distress. HEAD: Atraumatic, normocephalic. EYES: Pupils equal round and reactive to light, extraocular movements intact, sclera anicteric, conjunctiva are normal. ENT: nares patent, oropharynx clear without exudates. Moist mucous membranes. NECK: Normal range of motion, supple without lymphadenopathy LUNGS: Breath sounds clear to auscultation bilaterally and equal. No wheezes rales or rhonchi. HEART: Regular rate and rhythm without murmurs ABDOMEN: Soft, nontender, normoactive bowel sounds. No guarding, no rebound. No masses appreciated. EXTREMITIES: Normal range of motion, no pitting or edema. No cyanosis. NEUROLOGICAL: No focal neurological deficits. Moves all extremities spontaneously and on command. PSYCH: Normal mood, normal affect. SKIN: Warm, Dry, normal turgor, no rashes or lesions noted. (WAYLONCHELSEA VO IV) Course - Laboratory Result Diagrams: 06/27/19 04:43 06/27/19 04:43 - Transfer of Care Care transferred to following provider: dr. gallardo at 0600 <CHELSEA CONNORS IV - Last Filed: 06/27/19 06:06> - Laboratory Result Diagrams: 06/27/19 04:43 06/27/19 04:43 <AIDEN GALLARDO - Last Filed: 06/27/19 08:45> - Vital Signs Vital signs: Temp Pulse Resp BP Pulse Ox 98.1 F 119 H 21 H 138/103 H 94 06/27/19 04:34 06/27/19 04:34 06/27/19 07:01 06/27/19 07:01 06/27/19 07:01 - Laboratory Laboratory results interpreted by me: 06/27/19 06/27/19 06/27/19 04:43 04:43 04:43 WBC 13.0 H Hgb 17.5 H Hct 51.3 H RDW 16.7 H Absolute Neuts (auto) 10.2 H Seg Neutrophils % 78.1 H Potassium 2.2 L* Chloride 110 H Carbon Dioxide 14 L Glucose 155 H Calcium 5.8 L* Magnesium 1.0 L* Total Protein 5.4 L Albumin 2.6 L - EKG Interpretation by Me Additional EKG results interpreted by me: 06/27/19 05:28 EKG performed on 06/27/2019 at 0525 hrs. was interpreted by this MD. Findings: Sinus tachycardia, rate 117, normal axis, P waves preceding QRS complexes, QRS complexes appear narrow, ST segments are non-specific. Impression sinus tachycardia with nonspecific ST segments. (CHELSEA CONNORS IV) Discharge <CHELSEA CONNORS IV - Last Filed: 06/27/19 06:06> - Discharge Admitting Provider: Berna (Hospitalist) Unit Admitted: [facility] <AIDEN GALLARDO - Last Filed: 06/27/19 08:45> - Discharge Clinical Impression: Seizure, Hypokalemia, Hypocalcemia, Hypomagnesemia, Tachycardia Altered mental status, unspecified Qualifiers: Altered mental status type: unspecified Qualified Code(s): R41.82 - Altered mental status, unspecified Alcohol dependency Qualifiers: Substance use status: other alcohol-induced disorder Qualified Code(s): F10.288 - Alcohol dependence with other alcohol-induced disorder Condition: Stable Disposition: ADMITTED INPATIENT
[2019-06-27] MEDS ORDERED: NORMAL SALINE 1000 ML 1,000 ML IV ONE (05:32)
[2019-06-27 05:45] LABS: ABSOLUTE LYMPHOCYTES (AUTO) 1.9 10^3/uL (0.5-4.7); ABSOLUTE MONOCYTES (AUTO) 0.9 10^3/uL (0.1-1.4); ABSOLUTE NEUT (AUTO) 10.2 10^3/uL (1.7-8.2); BASOPHILS % (AUTO) 0.1 % (0-2); EOSINOPHILS % (AUTO) 0.4 % (0-6); HEMATOCRIT 51.3 % (37.9-51.0); HEMOGLOBIN 17.5 g/dL (13.5-17.0); LYMPHOCYTES % (AUTO) 14.7 % (13-45); MEAN CORPUSCULAR HEMOGLOBIN 32.6 pg (27.0-33.4); MEAN CORPUSCULAR HGB CONC 34.1 g/dL (32.0-36.0); MEAN CORPUSCULAR VOLUME 95 fl (80-97); MONOCYTES % (AUTO) 6.7 % (3-13); PLATELET COUNT 235 10^3/uL (150-450); RED BLOOD COUNT 5.38 10^6/uL (4.35-5.55); RED CELL DISTRIBUTION WIDTH 16.7 % (11.5-14.0); SEGMENTED NEUTROPHILS % (AUTO) 78.1 % (42-78); TOTAL CELLS COUNTED % (AUTO) 100 %
[2019-06-27 06:21] LABS: ALBUMIN 2.6 g/dL (3.5-5.0); ALKALINE PHOSPHATASE 55 U/L (38-126); ANION GAP 14 (5-19); ASPARTATE AMINO TRANSFERASE 31 U/L (17-59); BILIRUBIN,DIRECT 0.3 mg/dL (0.0-0.4); BILIRUBIN,TOTAL 1.2 mg/dL (0.2-1.3); BLOOD UREA NITROGEN 8 mg/dL (7-20); CARBON DIOXIDE 14 mmol/L (22-30); CHLORIDE 110 mmol/L (98-107); GLUCOSE 155 mg/dL (75-110); TOTAL PROTEIN 5.4 g/dL (6.3-8.2)
[2019-06-27 06:30] LABS: ALCOHOL < 10 mg/dL (NONE DETECTED)
[2019-06-27 06:32] LABS: CALCIUM 5.8 mg/dL (8.4-10.2); POTASSIUM 2.2 mmol/L (3.6-5.0)
--- NOTE | 2019-06-27 06:37 | RADIOLOGY REPORT (SQ) ---
EXAM DESCRIPTION: XR CHEST 1 VIEW COMPLETED DATE/TME: 06/27/2019 05:17 CLINICAL HISTORY: 59 years Male, ams, seizure activity COMPARISON: 04/01/19, March 28, 2019 NUMBER OF VIEWS/TECHNIQUE: 1/AP FINDINGS: Moderate chronic elevation of the right hemidiaphragm. Adequate lung volume, clear parenchyma, normal cardiac silhouette, and cervical spinal hardware. IMPRESSION: No acute cardiopulmonary findings.
[2019-06-27] MEDS ORDERED: CALCIUM GLUCONATE 1000 MG/10 ML INJ IV ONE (06:40)
[2019-06-27] MEDS ORDERED: POTASSIUM CHLORIDE 10 MEQ CAPSULE.ER PO ONE (06:40)
[2019-06-27] MEDS ORDERED: THIAMINE HCL INJ 200 MG/2 ML VIAL IV ONE (06:41)
--- NOTE | 2019-06-27 06:58 | RADIOLOGY REPORT (SQ) ---
EXAM DESCRIPTION: CT HEAD WITHOUT IV CONTRAST COMPLETED DATE/TME: 06/27/2019 05:17 CLINICAL HISTORY: 59 years Male, ams, seizure activity COMPARISON: 03/31/19 TECHNIQUE: No contrast. Coronal and sagittal reformat. This exam was performed according to our departmental dose-optimization program, which includes automated exposure control, adjustment of the mA and/or kV according to patient size and/or use of iterative reconstruction technique. Limitation: Motion. FINDINGS: No hemorrhage or infarct. No mass, mass effect, or midline shift. Atherosclerosis. Brain and extra-axial structures appear otherwise intact. IMPRESSION: No acute findings.
[2019-06-27] MEDS: MAGNESIUM SULFATE/D5W 1 GM/100 ML RTUPB IV SCH ×2 (08:00→08:43)
[2019-06-27] MEDS ORDERED: RINGERS SOLUTION,LACTATED 1,000 ML IV ONE (08:03)
[2019-06-27 09:10] LABS: APPEARANCE,URINE SLIGHTLY-CLOUDY; BILIRUBIN,URINE NEGATIVE (NEGATIVE); GLUCOSE, URINE NEGATIVE (NEGATIVE); KETONES,URINE TRACE mg/dL (NEGATIVE); LEUKOCYTE ESTERASE,URINE MODERATE (NEGATIVE); NITRITE,URINE NEGATIVE (NEGATIVE); PROTEIN,URINE 100 mg/dL (NEGATIVE); URINE SPECIFIC GRAVITY 1.016; UROBILINOGEN,URINE NEGATIVE mg/dL (<2.0)
[2019-06-27 09:11] LABS: COLOR,URINE DARK YELLOW
[2019-06-27 09:25] LABS: URINE AMPHETAMINES SCREEN NEGATIVE; URINE BARBITURATES SCREEN NEGATIVE; URINE COCAINE SCREEN NEGATIVE; URINE MARIJUANA (THC) SCREEN NEGATIVE; URINE METHADONE SCREEN NEGATIVE; URINE PHENCYCLIDINE SCREEN NEGATIVE
[2019-06-27 09:32] LABS: URINE BENZODIAZEPINES SCREEN UNCONFIRMED POSITIVE
[2019-06-27] MEDS: DIAZEPAM INJ 10 MG/2 ML DISP.SYRIN IV PRN ×2 (10:45→21:27)
[2019-06-27 11:20] LABS: ANION GAP 13 (5-19); BLOOD UREA NITROGEN 10 mg/dL (7-20); CALCIUM 8.5 mg/dL (8.4-10.2); CARBON DIOXIDE 23 mmol/L (22-30); CHLORIDE 95 mmol/L (98-107); GLUCOSE 104 mg/dL (75-110)
[2019-06-27 11:26] LABS: POTASSIUM 3.2 mmol/L (3.6-5.0)
[2019-06-27] MEDS: HEPARIN SOD (PORCINE) 5,000 UNIT/ML 1 ML VIAL SUBCUT SCH ×2 (15:28→21:27)
[2019-06-27] MEDS ORDERED: POTASSI CL 20 MEQ/50 ML RIDER 20 MEQ/50 ML RTUPB IV ONE (16:15)
--- NOTE | 2019-06-27 17:23 | EKG REPORT ---
SEVERITY:- ABNORMAL ECG - SINUS TACHYCARDIA CONSIDER ANTEROSEPTAL INFARCT BORDERLINE T ABNORMALITIES, INFERIOR LEADS : Confirmed by: Wale Lemus MD 27-Jun-2019 17:22:23
[2019-06-27] MEDS ORDERED: NORMAL SALINE 1000 ML 1,000 ML with POTASSIUM CHLORIDE 20 MEQ, MAGNESIUM SULFATE 8 MEQ,... IV SCH ×5 (18:00)
[2019-06-28] MEDS: DIAZEPAM INJ 10 MG/2 ML DISP.SYRIN IV PRN (01:41)
[2019-06-28 05:04] LABS: HEMATOCRIT 45.1 % (37.9-51.0); HEMOGLOBIN 15.5 g/dL (13.5-17.0); MEAN CORPUSCULAR HEMOGLOBIN 32.7 pg (27.0-33.4); MEAN CORPUSCULAR HGB CONC 34.3 g/dL (32.0-36.0); MEAN CORPUSCULAR VOLUME 95 fl (80-97); PLATELET COUNT 155 10^3/uL (150-450); RED BLOOD COUNT 4.73 10^6/uL (4.35-5.55); RED CELL DISTRIBUTION WIDTH 16.6 % (11.5-14.0); WHITE BLOOD COUNT 9.2 10^3/uL (4.0-10.5)
[2019-06-28] MEDS: HEPARIN SOD (PORCINE) 5,000 UNIT/ML 1 ML VIAL SUBCUT SCH ×2 (05:22→07:07)
[2019-06-28 05:23] LABS: ANION GAP 13 (5-19); BLOOD UREA NITROGEN 10 mg/dL (7-20); CARBON DIOXIDE 19 mmol/L (22-30); CHLORIDE 104 mmol/L (98-107); GLUCOSE 98 mg/dL (75-110); POTASSIUM 3.5 mmol/L (3.6-5.0)
[2019-06-28 07:42] VITALS: BP 123/96
--- NOTE | 2019-06-28 14:11 | PDOC H&P ---
History of Present Illness Admission Date/PCP: 06/27/19 08:51 History of Present Illness: BILLIE RM is a 59 year old male with a history of alcoholism has 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 He said he does not remember any of the details but his called EMS. In the ER he was found to have numerous electrolyte disturbances that required replenishment as well. He said it has been a couple of days since he has had a drink. His ethanol level was undetectable. 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 Musculoskeltal Medical History: Reports: Arthritis Psychiatric Medical History: Reports: Post Traumatic Stress Disorder Denies: Depression Hematology: Denies: Anemia Past Surgical History Past Surgical History: Reports: Orthopedic Surgery - neck Social History Smoking Status: Former Smoker Electronic Cigarette use?: No Frequency of Alcohol Use: Heavy Hx Recreational Drug Use: No Drugs: None Hx Prescription Drug Abuse: No - Advance Directive Resuscitation Status: Full Code Family History Family History: Hypertension, Other - Mom age 74 Alzheimer's Parental Family History Reviewed: Yes Children Family History Reviewed: Yes Sibling(s) Family History Reviewed.: Yes Medication/Allergy Home Medications: Amlodipine Besylate [Norvasc 5 mg Tablet] 5 mg PO DAILY 06/27/19 Carvedilol [Coreg 3.125 mg Tablet] 3.125 mg PO BID 06/27/19 Fluticasone Propionate [Flonase Nasal Busby 50 Mcg/Busby 16 gm] 2 spray NASL DAILY 06/27/19 Furosemide [Lasix 40 mg Tablet] 40 mg PO DAILY 06/27/19 Montelukast Sodium [Singulair 10 mg Tablet] 10 mg PO QPM 06/27/19 Potassium Chloride [Klor-Con M20] 20 meq PO DAILY 06/27/19 Tamsulosin HCl [Flomax 0.4 mg Cap.sr] 0.4 mg PO DAILY 06/27/19 Tizanidine HCl [Zanaflex] 4 mg PO QHS 06/27/19 Trazodone HCl [Desyrel 50 mg Tablet] 50 mg PO QPM 06/27/19 Allergies/Adverse Reactions: No Known Allergies Allergy (Verified 12/11/16 05:01) Review of Systems ROS unobtainable: Due to mental status Physical Exam Vital Signs: Temp Pulse Resp BP Pulse Ox 97.4 F 121 H 18 123/96 H 94 06/28/19 09:52 06/28/19 09:52 06/28/19 09:52 06/28/19 09:52 06/28/19 09:52 Intake & Output 06/27/19 06/28/19 06/29/19 06:59 06:59 06:59 Intake Total 1000 4585 240 Balance 1000 4585 240 Weight 101 kg 98.7 kg General appearance: PRESENT: cooperative, disheveled, mild distress Head exam: PRESENT: atraumatic, normocephalic Eye exam: PRESENT: EOMI, PERRLA. ABSENT: conjunctival injection, nystagmus, scleral icterus Ear exam: PRESENT: normal external ear exam Mouth exam: PRESENT: dry mucosa, neck supple Teeth exam: PRESENT: poor dentation Throat exam: ABSENT: post pharyngeal erythema Neck exam: PRESENT: full ROM. ABSENT: carotid bruit, JVD, lymphadenopathy, meningismus, tenderness, thyromegaly Respiratory exam: PRESENT: clear to auscultation sidney, symmetrical, unlabored. ABSENT: accessory muscle use, chest wall tenderness, crackles, prolonged expiratory phas, rhonchi, tachypnea, wheezes Cardiovascular exam: PRESENT: +S1, +S2, tachycardia Pulses: PRESENT: normal carotid pulses Vascular exam: PRESENT: normal capillary refill GI/Abdominal exam: PRESENT: normal bowel sounds, soft. ABSENT: distended, guarding, rebound, tenderness Extremities exam: ABSENT: clubbing, pedal edema Musculoskeletal exam: PRESENT: normal inspection. ABSENT: deformity Neurological exam: PRESENT: alert, awake, oriented to person, oriented to place, CN II-XII grossly intact, other - Very tremulous. ABSENT: motor sensory deficit Psychiatric exam: PRESENT: anxious Skin exam: PRESENT: dry, warm Results Laboratory Results: 06/28/19 04:28 06/28/19 04:28 06/28/19 06/28/19 04:28 04:28 WBC 9.2 RBC 4.73 Hgb 15.5 Hct 45.1 MCV 95 MCH 32.7 MCHC 34.3 RDW 16.6 H Plt Count 155 Sodium 135.7 L Potassium 3.5 L Chloride 104 Carbon Dioxide 19 L Anion Gap 13 BUN 10 Creatinine 1.18 Est GFR ( Amer) > 60 Glucose 98 Calcium 9.0 Magnesium 2.1 06/27/19 04:43 Troponin I < 0.012 Impressions: Chest X-Ray 06/27/19 05:17 IMPRESSION: No acute cardiopulmonary findings. Head CT 06/27/19 05:17 IMPRESSION: No acute findings. Assessment and Plan - Diagnosis (1) Alcohol withdrawal seizure Qualifiers: Complication of substance-induced condition: with delirium Qualified Code(s): F10.231 - Alcohol dependence with withdrawal delirium Is this a current diagnosis for this admission?: Yes Plan: Will give him PRN Valium for withdrawal symptoms and put him on seizure precautions. We will also give him a banana bag daily. (2) Hypocalcemia Is this a current diagnosis for this admission?: Yes Plan: We will replace intravenously (3) Hypokalemia Is this a current diagnosis for this admission?: Yes Plan: We will replace intravenously and keep him on the monitor (4) Hypomagnesemia Is this a current diagnosis for this admission?: Yes Plan: We will replace intravenously and keep him on a youth nutritional monitor - Time Time Spent with patient: 35 or more minutes - Inpatient Certification Based on my medical assessment, after consideration of the patient's comorbidities, presenting symptoms, or acuity I expect that the services needed warrant INPATIENT care.: Yes I certify that my determination is in accordance with my understanding of Medicare's requirements for reasonable and necessary INPATIENT services [42 CFR 412.3e].: Yes Medical Necessity: Significant Comorbidiites Make Outpatient Treatment Too Risky, Need Close Monitoring Due to Risk of Patient Decompensation, Need For IV Fluids, Need For Continuous Telemetry Monitoring, Need for Neurological Checks, Risk of Complication if Not Cared For in Hospital
--- NOTE | 2019-06-28 14:13 | PDOC DISCHARGE SUMMARY ---
Impression - Admit/DC Date/PCP Admission Date/Primary Care Provider: 06/27/19 08:51 Discharge Date: 06/28/19 - Additional Information Resuscitation Status: Full Code Discharge Diet: Cardiac Discharge Activity: No Driving, Slowly Increase Activity Referrals: ERNA YOUNGBLOOD PA-C [NO LOCAL MD] - Home Medications: Amlodipine Besylate [Norvasc 5 mg Tablet] 5 mg PO DAILY 06/27/19 Carvedilol [Coreg 3.125 mg Tablet] 3.125 mg PO BID 06/27/19 Fluticasone Propionate [Flonase Nasal [place] 50 Mcg/[place] 16 gm] 2 spray NASL [place] LY 06/27/19 Furosemide [Lasix 40 mg Tablet] 40 mg PO DAILY 06/27/19 Montelukast Sodium [Singulair 10 mg Tablet] 10 mg PO QPM 06/27/19 Potassium Chloride [Klor-Con M20] 20 meq PO DAILY 06/27/19 Tamsulosin HCl [Flomax 0.4 mg Cap.sr] 0.4 mg PO DAILY 06/27/19 Tizanidine HCl [Zanaflex] 4 mg PO QHS 06/27/19 Trazodone HCl [Desyrel 50 mg Tablet] 50 mg PO QPM 06/27/19 History of Present Illiness History of Present Illness: BILLIE MR is a 59 year old male with a history of alcoholism has 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 He said he does not remember any of the details but his called EMS. In the ER he was found to have numerous electrolyte disturbances that required replenishment as well. He said it has been a couple of days since he has had a drink. His ethanol level was undetectable. Hospital Course Hospital Course: His electrolytes were repleted and he was hydrated. He was given Valium on an as-needed basis for tremulousness and withdrawal symptoms. He was calm and at rest today and said that he did not plan to stop drinking. His said that if he got into "bad shape" again he would just "come back here and let you guys fix me up." He was strongly encouraged to stop drinking, and if he ever decides to do so he should seek a medical detoxification and not try to do it on his own at home. He verbalizes understanding. He was discharged in stable condition. Physical Exam Vital Signs: Temp Pulse Resp BP Pulse Ox 97.4 F 121 H 18 123/96 H 94 06/28/19 09:52 06/28/19 09:52 06/28/19 09:52 06/28/19 09:52 06/28/19 09:52 Intake & Output 06/27/19 06/28/19 06/29/19 06:59 06:59 06:59 Intake Total 1000 4585 240 Balance 1000 4585 240 Weight 101 kg 98.7 kg General appearance: PRESENT: no acute distress, cooperative, disheveled Respiratory exam: PRESENT: clear to auscultation sidney, symmetrical, unlabored. ABSENT: accessory muscle use, chest wall tenderness, crackles, prolonged expiratory phas, rhonchi, tachypnea, wheezes Cardiovascular exam: PRESENT: RRR, +S1, +S2 Pulses: PRESENT: normal carotid pulses Vascular exam: PRESENT: normal capillary refill GI/Abdominal exam: PRESENT: normal bowel sounds, soft. ABSENT: distended, guarding, rebound, tenderness Extremities exam: ABSENT: clubbing, pedal edema Musculoskeletal exam: PRESENT: normal inspection. ABSENT: deformity Neurological exam: PRESENT: alert, awake, oriented to person, oriented to place, oriented to situation Psychiatric exam: PRESENT: appropriate affect, normal mood Skin exam: PRESENT: dry, warm Results Laboratory Results: WBC 9.2 10^3/uL (4.0-10.5) 06/28/19 04:28 RBC 4.73 10^6/uL (4.35-5.55) 06/28/19 04:28 Hgb 15.5 g/dL (13.5-17.0) 06/28/19 04:28 Hct 45.1 % (37.9-51.0) 06/28/19 04:28 MCV 95 fl (80-97) 06/28/19 04:28 MCH 32.7 pg (27.0-33.4) 06/28/19 04:28 MCHC 34.3 g/dL (32.0-36.0) 06/28/19 04:28 RDW 16.6 % (11.5-14.0) H 06/28/19 04:28 Plt Count 155 10^3/uL (150-450) 06/28/19 04:28 Lymph % (Auto) 14.7 % (13-45) 06/27/19 04:43 Ogle % (Auto) 6.7 % (3-13) 06/27/19 04:43 Eos % (Auto) 0.4 % (0-6) 06/27/19 04:43 Baso % (Auto) 0.1 % (0-2) 06/27/19 04:43 Absolute Neuts (auto) 10.2 10^3/uL (1.7-8.2) H 06/27/19 04:43 Absolute Lymphs (auto) 1.9 10^3/uL (0.5-4.7) 06/27/19 04:43 Absolute Monos (auto) 0.9 10^3/uL (0.1-1.4) 06/27/19 04:43 Absolute Eos (auto) 0.0 10^3/uL (0.0-0.6) 06/27/19 04:43 Absolute Basos (auto) 0.0 10^3/uL (0.0-0.2) 06/27/19 04:43 Seg Neutrophils % 78.1 % (42-78) H 06/27/19 04:43 Sodium 135.7 mmol/L (137-145) L 06/28/19 04:28 Potassium 3.5 mmol/L (3.6-5.0) L 06/28/19 04:28 Chloride 104 mmol/L (98-107) 06/28/19 04:28 Carbon Dioxide 19 mmol/L (22-30) L 06/28/19 04:28 Anion Gap 13 (5-19) 06/28/19 04:28 BUN 10 mg/dL (7-20) 06/28/19 04:28 Creatinine 1.18 mg/dL (0.52-1.25) 06/28/19 04:28 Est GFR ( Amer) > 60 (>60) 06/28/19 04:28 Est GFR (MDRD) Non-Af > 60 (>60) 06/28/19 04:28 Glucose 98 mg/dL (75-110) 06/28/19 04:28 Calcium 9.0 mg/dL (8.4-10.2) 06/28/19 04:28 Magnesium 2.1 mg/dL (1.6-2.3) 06/28/19 04:28 Total Bilirubin 1.2 mg/dL (0.2-1.3) 06/27/19 04:43 Direct Bilirubin 0.3 mg/dL (0.0-0.4) 06/27/19 04:43 Neonat Total Bilirubin Not Reportable 06/27/19 04:43 Neonat Direct Bilirubin Not Reportable 06/27/19 04:43 Neonat Indirect Bili Not Reportable 06/27/19 04:43 AST 31 U/L (17-59) 06/27/19 04:43 ALT 20 U/L (<50) 06/27/19 04:43 Alkaline Phosphatase 55 U/L (38-126) 06/27/19 04:43 Troponin I < 0.012 ng/mL 06/27/19 04:43 Total Protein 5.4 g/dL (6.3-8.2) L 06/27/19 04:43 Albumin 2.6 g/dL (3.5-5.0) L 06/27/19 04:43 Urine Color DARK YELLOW 06/27/19 08:54 Urine Appearance SLIGHTLY-CLOUDY 06/27/19 08:54 Urine pH 6.0 (5.0-9.0) 06/27/19 08:54 Ur Specific [place] 1.016 06/27/19 08:54 Urine Protein 100 mg/dL (NEGATIVE) H 06/27/19 08:54 Urine Glucose (UA) NEGATIVE mg/dL (NEGATIVE) 06/27/19 08:54 Urine Ketones TRACE mg/dL (NEGATIVE) H 06/27/19 08:54 Urine Blood SMALL (NEGATIVE) H 06/27/19 08:54 Urine Nitrite NEGATIVE (NEGATIVE) 06/27/19 08:54 Urine Bilirubin NEGATIVE (NEGATIVE) 06/27/19 08:54 Urine Urobilinogen NEGATIVE mg/dL (<2.0) 06/27/19 08:54 Ur Leukocyte Esterase MODERATE (NEGATIVE) H 06/27/19 08:54 Urine WBC (Auto) 2 /HPF 06/27/19 08:54 Urine RBC (Auto) 1 /HPF 06/27/19 08:54 U Hyaline Cast (Auto) 8 /LPF 06/27/19 08:54 Squamous Epi Cells Auto 2 /HPF 06/27/19 08:54 Urine Mucus (Auto) RARE /LPF 06/27/19 08:54 Urine Ascorbic Acid NEGATIVE (NEGATIVE) 06/27/19 08:54 Urine Opiates Screen NEGATIVE 06/27/19 08:54 Urine Methadone Screen NEGATIVE 06/27/19 08:54 Ur Barbiturates Screen NEGATIVE 06/27/19 08:54 Ur Phencyclidine Scrn NEGATIVE 06/27/19 08:54 Ur Amphetamines Screen NEGATIVE 06/27/19 08:54 U Benzodiazepines Scrn UNCONFIRMED POSITIVE 06/27/19 08:54 Urine Cocaine Screen NEGATIVE 06/27/19 08:54 U Marijuana (THC) Screen NEGATIVE 06/27/19 08:54 Serum Alcohol < 10 mg/dL (NONE DETECTED) 06/27/19 04:43 06/27/19 04:43 Troponin I < 0.012 Impressions: Chest X-Ray 06/27/19 05:17 IMPRESSION: No acute cardiopulmonary findings. Head CT 06/27/19 05:17 IMPRESSION: No acute findings. Plan Time Spent: Greater than 30 Minutes Stroke Is this a Stroke Patient?: No Acute Heart Failure - Is this a Heart Failure Patient?: No
== END 2019-06-28 14:10 | disposition home or self-care (01) | DRG 897 ==
LOC: ER 04:29 → EH 08:51 → 3W 09:39
PROVIDERS: ADMIT Family Medicine; ATTEND Family Medicine
PROC: HZ2ZZZZ Detoxification Services for Substance Abuse Treatment (ICD-10-PCS; principal; 2019-06-27)
DX: F10.239 Alcohol dependence with withdrawal, unspecified (principal); I42.9 Cardiomyopathy, unspecified; E83.51 Hypocalcemia; I11.0 Hypertensive heart disease with heart failure; I50.9 Heart failure, unspecified; R56.9 Unspecified convulsions; E83.42 Hypomagnesemia; J44.9 Chronic obstructive pulmonary disease, unspecified; M19.90 Unspecified osteoarthritis, unspecified site; F43.10 Post-traumatic stress disorder, unspecified; E87.6 Hypokalemia; Z71.41 Alcohol abuse counseling and surveillance of alcoholic; Z87.891 Personal history of nicotine dependence; Z82.49 Family history of ischemic heart disease and other diseases of the circulatory system
CPT/HCPCS: 36415; 70450; 71045; 80048; 80053; 80307; 81001; 83735; 84484; 85025; 85027; 93005; 93010; 96361; 96365; 96375; 99285; J0610; J1644; J3360; J3411; J3475; J3480; J3490; J7030; J7120